=== PATIENT | female | born 1995 ===

== ENCOUNTER → 2016-05-11 | Outpatient (CLI) | payer OTHER ==
[2016-05-11 19:06] LABS: Non-African American GFR(MDRD) >60 (>60 ml/min/1.73 sqM)
[2016-05-11 19:13] LABS: CH 30.2; CHCM 34.1; HDW 2.47; HGB 14.3 gm/dL (11.4-16.0); MCH 30.2 pg (25.0-35.0); MCHC 34.1 g/dL (31.0-37.0); MCV 88.8 fL (80.0-100.0); Mean Platelet Volume 9.7; RBC 4.73 m/uL (3.80-5.40); RDW 12.7 % (11.5-15.5); WBC 9.8 k/uL (4.0-11.0)
[2016-05-11 19:37] LABS: Hepatitis B Surface Ag Index 0.05
== END | disposition home or self-care (01) ==
LOC: LABMAIN 17:51
PROVIDERS: ATTEND Obstetrics & Gynecology
DX: Z34.91 Encounter for supervision of normal pregnancy, unspecified, first trimester (principal); Z3A.00 Weeks of gestation of pregnancy not specified
CPT/HCPCS: 36415; 82565; 82950; 85027; 86762; 86780; 86850; 86900; 86901; 87340

== ENCOUNTER → 2016-06-29 | Outpatient (CLI) | payer OTHER ==
--- NOTE | 2016-06-29 20:30 | US ---
EXAMINATION TYPE: US OB anatomy transabd DATE OF EXAM: 06/29/2016 3:50 PM COMPARISON: 04/06/2016 HISTORY: LGA TECHNIQUE: Transabdominal (TA) EXAM MEASUREMENTS: GESTATIONAL AGE / DATING Physician Established: (18 weeks/5 days) EDC: 11/25/2016 Dates by LMP: uncertain Dates by First Scan: (18 weeks/5 days) EDC: 11/25/2016 Dates by Current Scan for: (19 weeks/0 days) EDC: 11/23/2016 SURVEY IUP: Single PLACENTA: Fundal PREVIA: No previa KAYLAH: 13.4 cm Normal CERVICAL LENGTH (transabdominal: norm > 3.0cm): 3.5 cm BIOMETRY PRESENTATION: Breech LIE: Transverse lie with head maternal Left BPD: 4.6 cm 20 weeks / 0 days HC: 16.3 cm 19 weeks / 1 day AC: 14.2 cm 19 weeks / 4 days FL: 2.8 cm 18 weeks / 3 days ESTIMATED WEIGHT IN GRAMS: 272.1 grams ESTIMATED WEIGHT IN LBS/OZ: 0 lbs. 10 oz. WEIGHT PERCENTAGE BASED ON ESTABLISHED DATE: 67.1 % HC/AC: 1.15 FL/AC: 19.48 HEART RATE: 129 bpm RHYTHM: Normal ANATOMY SEEN (within normal limits): * Lateral Vent (< 1 cm) 0.7 cm * Cisterna Magna (< 1.1 cm) 0.3 cm * Nuchal Fold (< 0.6 cm) 0.4 cm * Cerebellum (varies with age) 1.9 cm Choroid Plexus (bilateral) Midline Falx Cavus Septi Pellucidi Four Chamber Heart Outflow tracts: LVOT/RVOT Stomach Situs Diaphragm Kidneys (bilateral) Bladder Cord Insert Three Vessel Cord Longitudinal Spine Transverse Spine Arms (bilateral) Legs (bilateral) Anatomy not well seen: Nose / Lips as is < 20 weeks gestation IMPRESSION: Single, live, IUP, 19 weeks/0 days, EDC: 11/23/2016; HR 129bpm.
== END | disposition home or self-care (01) ==
LOC: RADUSWWP 14:32
PROVIDERS: ATTEND Obstetrics & Gynecology
DX: O36.62X0 Maternal care for excessive fetal growth, second trimester, not applicable or unspecified (principal); Z3A.19 19 weeks gestation of pregnancy; Z88.6 Allergy status to analgesic agent; Z91.030 Bee allergy status
CPT/HCPCS: 76811

== ENCOUNTER → 2016-08-10 | Outpatient (CLI) | payer OTHER ==
[2016-08-10 12:21] LABS: CH 30.8; HCT 38.3 % (34.0-46.0); HDW 2.64; HGB 12.5 gm/dL (11.4-16.0); MCH 30.7 pg (25.0-35.0); MCHC 32.8 g/dL (31.0-37.0); MCV 93.8 fL (80.0-100.0); Mean Platelet Volume 8.9; RBC 4.08 m/uL (3.80-5.40); RDW 13.9 % (11.5-15.5); WBC 10.2 k/uL (4.0-11.0)
== END | disposition home or self-care (01) ==
LOC: LABWHC1 10:45
PROVIDERS: ATTEND Obstetrics & Gynecology
DX: Z34.82 Encounter for supervision of other normal pregnancy, second trimester (principal); Z3A.00 Weeks of gestation of pregnancy not specified
CPT/HCPCS: 36415; 82950; 85027

== ENCOUNTER 2016-08-21 21:57 | Outpatient (CLI) | payer OTHER ==
[2016-08-21 22:45] VITALS: BP 144/90; PULSE 82; RESP 18; TEMP 97.5
== END 2016-08-21 22:35 | disposition home or self-care (01) ==
LOC: FBPOP 21:57
PROVIDERS: ATTEND Obstetrics & Gynecology
DX: O26.92 Pregnancy related conditions, unspecified, second trimester (principal); Z3A.26 26 weeks gestation of pregnancy
CPT/HCPCS: 99213

== ENCOUNTER 2016-09-08 16:01 | Outpatient (CLI) | payer OTHER ==
[2016-09-08 17:16] VITALS: BP 138/79; PULSE 89; RESP 16; TEMP 95.9
== END 2016-09-08 16:45 | disposition home or self-care (01) ==
LOC: FBPOP 16:01
PROVIDERS: ATTEND Obstetrics & Gynecology
DX: O99.89 Other specified diseases and conditions complicating pregnancy, childbirth and the puerperium (principal); R10.9 Unspecified abdominal pain; Z3A.28 28 weeks gestation of pregnancy
CPT/HCPCS: 59025; G0463; 99213

== ENCOUNTER 2016-09-17 22:12 | Outpatient (CLI) | payer OTHER ==
[2016-09-17 22:48] VITALS: BP 129/62; PULSE 84; RESP 16; TEMP 95.9
[2016-09-17 23:48] LABS: Appearance,Urine Clear (Clear); Bilirubin,Urine Negative (Negative); Glucose,Urine (UA) Negative (Negative); Ketones,Urine Trace (Negative); Leukocyte Esterase,Urine Negative (Negative); Nitrite,Urine Negative (Negative); PH, Urine 6.5 (5.0-8.0); Protein,Urine Negative (Negative); UA Billing (MACRO vs. MICRO) CHEM; Urobilinogen,Urine <2.0 mg/dL (<2.0)
--- NOTE | 2016-09-19 10:02 | P.MSEPDOC ---
Presenting Problems - Arrival Data Date of Arrival on Unit: 09/17/16 Time of Arrival on Unit: 22:12 Mode of Transport: Ambulatory - Complaint OB-Reason for Admission/Chief Complaint: Headache, Visual Disturbances, Pain Medical History - Information : 2 Para: 0 Term: 0 : 0 Abortions: Spontaneous or Elective: 1 Number of Living Children: 0 - Gestational Age Expected Date of Delivery: 11/25/16 Gestational Age by PRANAV (wks/days): 30 Weeks and 3 Days Review of Systems - Review of Systems Constitutional: No problems Breast: No problems ENT: No problems Cardiovascular: No problems Respiratory: No problems Gastrointestinal: No problems Genitourinary: No problems Musculoskeletal: No problems Neurological: No problems Skin: No problems Vital Signs - Temperature Temperature: 95.9 F Temperature Source: Tympanic - Pulse Right Brachial Pulse Rate: 84 Pulse Assessment Method: Automatic Cuff - Respirations Respiratory Rate: 16 Oxygen Delivery Method: Room Air - Blood Pressure Right Arm Blood Pressure: 129/62 Blood Pressure Mean: 84 Blood Pressure Source: Automatic Cuff Medical Screen Scoring (Pre) - Cervical Exam Dilation: 0 cm = 0 Effacement: Exam Deferred Membranes: Intact - Uterine Contractions Frequency: < 36 weeks = 6 - Maternal Vital Signs Maternal Temperature: N/A Maternal Blood Pressure: N/A Signs of Preeclampsia: N/A Maternal Respirations: N/A - Maternal Trauma Maternal Trauma: N/A - Assessment Heart Rate - NICHD Category: Category I (Normal) = 0 - Total Score Total Score (Pre): 6 - Level of Risk Level of Risk: Medium (6-9) Physician Notification (Pre) - Physician Notified Physician Notified Date: 09/17/16 Physician Notified Time: 22:23 Physician/Practitioner Notifed:: Dr. Howard Spoke With: Dr. Howard New Order Received: Yes Medical Screen Scoring (Post) - Cervical Exam Dilation: Exam Deferred Effacement: Exam Deferred Membranes: Intact - Uterine Contractions Frequency: > 5 minutes apart = 1 Duration: > 40 seconds = 2 Intensity: N/A - Maternal Vital Signs Maternal Temperature: N/A Maternal Blood Pressure: N/A Signs of Preeclampsia: N/A Maternal Respirations: N/A - Maternal Trauma Maternal Trauma: N/A - Assessment Heart Rate: 125 Heart Rate - NICHD Category: Category I (Normal) = 0 NST: Reactive Position: N/A Station: N/A - Total Score Total Score (Post): 3 - Post Treatment Level of Risk Post Treatment Level of Risk: Low (0-5) Physician Notification (Post) - Physician Notified Physician Notified Date: 09/18/16 Physician Notified Time: 00:07 Physician/Practitioner Notified:: Dr. Howard - Notification Comment Comment: Discharge patient home with instructions Disposition - Disposition Discharge Date: 09/18/16 Discharge Time: 00:15 I agree with the RN Medical Screening Exam: Yes Risk & Benefit of care provided described in d/c instruction: Yes Diagnosis: 30 WEEKS GESTATION OF
== END 2016-09-18 00:15 | disposition home or self-care (01) ==
LOC: FBPOP 22:12
PROVIDERS: ATTEND Obstetrics & Gynecology
DX: O99.89 Other specified diseases and conditions complicating pregnancy, childbirth and the puerperium (principal); R51 Headache; Z3A.30 30 weeks gestation of pregnancy
CPT/HCPCS: 59025; 82731; 81003; G0463; 99213

== ENCOUNTER 2016-10-02 21:24 | Outpatient (CLI) | payer OTHER ==
[2016-10-02 22:28] LABS: Amorphous Sediment,Urine Rare /hpf; Appearance,Urine Cloudy (Clear); Bacteria,Urine Occasional /hpf; Bilirubin,Urine Negative (Negative); Glucose,Urine (UA) Negative (Negative); Ketones,Urine Negative (Negative); Leukocyte Esterase,Urine Large (Negative); Mucus,Urine Rare /hpf; Nitrite,Urine Negative (Negative); Particle Count 10920; Protein,Urine Trace (Negative); RBC,Urine 3 /hpf (0-5); Specific Gravity,Urine 1.014 (1.001-1.035); Squamous Epithelial Cell,Urine 50 /hpf (0-4); UA Billing (MACRO vs. MICRO) MICRO; Urobilinogen,Urine <2.0 mg/dL (<2.0); WBC,Urine 26 /hpf (0-5)
[2016-10-02] MEDS ORDERED: LACTATED RINGERS 1,000 ML IV SCH (23:00)
[2016-10-02 23:20] VITALS: BP 117/58; PULSE 78; RESP 16; TEMP 96.9
--- NOTE | 2016-10-03 16:08 | P.MSEPDOC ---
Presenting Problems - Arrival Data Date of Arrival on Unit: 10/02/16 Time of Arrival on Unit: 21:38 Mode of Transport: Wheelchair - Complaint OB-Reason for Admission/Chief Complaint: Pain Medical History - Information : 2 Para: 0 Term: 0 : 0 Abortions: Spontaneous or Elective: 1 Number of Living Children: 0 - Gestational Age Expected Date of Delivery: 11/25/16 Gestational Age by PRANAV (wks/days): 32 Weeks and 3 Days Review of Systems - Review of Systems Constitutional: No problems Breast: No problems ENT: No problems Cardiovascular: No problems Respiratory: No problems Gastrointestinal: No problems Genitourinary: No problems Musculoskeletal: No problems Neurological: No problems Skin: No problems Vital Signs - Temperature Temperature: 96.9 F Temperature Source: Temporal Artery Scan - Pulse Right Brachial Pulse Rate: 78 Pulse Assessment Method: Automatic Cuff - Respirations Respiratory Rate: 16 Oxygen Delivery Method: Room Air - Blood Pressure Right Arm Blood Pressure: 117/58 Blood Pressure Mean: 77 Blood Pressure Source: Automatic Cuff Medical Screen Scoring (Pre) - Cervical Exam Dilation: 0 cm = 0 Membranes: Intact - Uterine Contractions Frequency: < 36 weeks = 6 Duration: > 40 seconds = 2 Intensity: N/A - Assessment Baseline FHR: 125 Heart Rate - NICHD Category: Category I (Normal) = 0 NST: Reactive - Total Score Total Score (Pre): 8 - Level of Risk Level of Risk: Medium (6-9) Medical Screen Scoring (Post) - Cervical Exam Dilation: Exam Deferred - Uterine Contractions Frequency: N/A - Total Score Total Score (Post): 0 - Post Treatment Level of Risk Post Treatment Level of Risk: Low (0-5) Physician Notification (Post) - Physician Notified Physician Notified Date: 10/02/16 Physician Notified Time: 23:28 Spoke With: Hector - Notification Comment Comment: if contractions stop and ffn negative may discharge Disposition - Disposition OB Disposition: Triage, Discharge to home, Written follow up instructions reviewed Discharge Date: 10/02/16 Discharge Time: 23:35 I agree with the RN Medical Screening Exam: Yes Risk & Benefit of care provided described in d/c instruction: Yes Diagnosis: FALSE LABOR BEFORE 37 COMPLETED WEEKS OF GEST, THIRD TRI
== END 2016-10-02 23:35 | disposition home or self-care (01) ==
LOC: FBPOP 21:24
PROVIDERS: ATTEND Obstetrics & Gynecology
DX: O47.03 False labor before 37 completed weeks of gestation, third trimester (principal); Z3A.37 37 weeks gestation of pregnancy
CPT/HCPCS: 59025; 96360; 82731; 81001; G0463; 99214

== ENCOUNTER 2016-10-26 19:51 | Outpatient (CLI) | payer OTHER ==
[2016-10-26 20:17] VITALS: BP 134/76; PULSE 72; RESP 16; TEMP 96.5
--- NOTE | 2016-10-27 12:26 | P.MSEPDOC ---
Presenting Problems - Arrival Data Date of Arrival on Unit: 10/26/16 Time of Arrival on Unit: 19:50 Mode of Transport: Wheelchair - Complaint OB-Reason for Admission/Chief Complaint: Observation/Evaluation Comment: complaints of back pain for 2 hours and cramping for 1 hour Medical History - Information : 2 Para: 0 Term: 0 : 0 Abortions: Spontaneous or Elective: 1 Number of Living Children: 0 - Gestational Age Expected Date of Delivery: 11/25/16 Gestational Age by PRANAV (wks/days): 35 Weeks and 6 Days Review of Systems - Review of Systems Constitutional: No problems Breast: No problems ENT: No problems Cardiovascular: No problems Respiratory: No problems Gastrointestinal: No problems Genitourinary: No problems Musculoskeletal: No problems Neurological: No problems Skin: No problems Vital Signs - Temperature Temperature: 96.5 F Temperature Source: Temporal Artery Scan - Pulse Right Sitting Brachial Pulse Rate: 72 Pulse Assessment Method: Automatic Cuff - Respirations Respiratory Rate: 16 O2 Sat by Pulse Oximetry: 99 - Blood Pressure Right Arm Blood Pressure: 134/76 Blood Pressure Mean: 95 Blood Pressure Source: Automatic Cuff Medical Screen Scoring (Pre) - Cervical Exam Dilation: 1-3 cm = 1 Membranes: Intact - Uterine Contractions Frequency: N/A Duration: N/A Intensity: N/A - Maternal Vital Signs Maternal Temperature: N/A Maternal Blood Pressure: N/A Signs of Preeclampsia: N/A Maternal Respirations: N/A - Maternal Trauma Maternal Trauma: N/A - Assessment Baseline FHR: 135 Heart Rate - NICHD Category: Category I (Normal) = 0 NST: Reactive - Total Score Total Score (Pre): 1 - Level of Risk Level of Risk: Low (0-5) Physician Notification (Pre) - Physician Notified Physician Notified Date: 10/26/16 Physician Notified Time: 21:08 Physician/Practitioner Notifed:: Yair Mackey Order Received: Yes Disposition - Disposition Discharge Date: 10/26/16 Discharge Time: 21:10 I agree with the RN Medical Screening Exam: Yes Risk & Benefit of care provided described in d/c instruction: Yes Diagnosis: FALSE LABOR, UNSPECIFIED
== END 2016-10-26 21:10 | disposition home or self-care (01) ==
LOC: FBPOP 19:51
PROVIDERS: ATTEND Obstetrics & Gynecology
DX: O47.9 False labor, unspecified (principal); Z3A.35 35 weeks gestation of pregnancy
CPT/HCPCS: 59025; G0463; 99213

== ENCOUNTER → 2016-11-02 | Outpatient (CLI) | payer OTHER ==
[2016-11-02 19:21] VITALS: BP 130/62; PULSE 81; RESP 18; TEMP 98
--- NOTE | 2016-11-04 19:22 | P.MSEPDOC ---
Presenting Problems - Arrival Data Date of Arrival on Unit: 11/02/16 Time of Arrival on Unit: 18:27 Mode of Transport: Wheelchair - Complaint OB-Reason for Admission/Chief Complaint: Possible Onset of Labor Comment: tailbone pain, rib pain, low abd discomfort. pain score of 5 Medical History - Information : 2 Para: 0 Term: 0 : 0 Abortions: Spontaneous or Elective: 1 Number of Living Children: 0 - Gestational Age Expected Date of Delivery: 11/25/16 Gestational Age by PRANAV (wks/days): 37 Weeks and 0 Days Review of Systems - Review of Systems Constitutional: No problems Breast: No problems ENT: No problems Cardiovascular: No problems Respiratory: No problems Gastrointestinal: No problems Genitourinary: No problems Musculoskeletal: No problems Neurological: No problems Skin: No problems Comment: depression history. not takin meds with . sees her counselor on tuesday this week and has ob appt on Vital Signs - Temperature Temperature: 98.0 F Temperature Source: Oral - Pulse Right Brachial Pulse Rate: 81 Pulse Assessment Method: Automatic Cuff - Respirations Respiratory Rate: 18 Oxygen Delivery Method: Room Air O2 Sat by Pulse Oximetry: 98 - Blood Pressure Right Arm Blood Pressure: 130/62 Blood Pressure Mean: 84 Blood Pressure Source: Automatic Cuff Medical Screen Scoring (Pre) - Cervical Exam Dilation: 1-3 cm = 1 Effacement: Exam Deferred Membranes: Intact - Uterine Contractions Frequency: N/A Duration: N/A Intensity: N/A - Maternal Vital Signs Maternal Temperature: N/A Signs of Preeclampsia: N/A Maternal Respirations: N/A - Maternal Trauma Maternal Trauma: N/A - Assessment Baseline FHR: 135 Heart Rate - NICHD Category: Category I (Normal) = 0 NST: Reactive Position: N/A Station: N/A - Total Score Total Score (Pre): 1 - Level of Risk Level of Risk: Low (0-5) Physician Notification (Pre) - Physician Notified Physician/Practitioner Notifed:: yes Spoke With: khai Mackey Order Received: Yes - Notification Comment Comment: disch home to keep next sched appt. Medical Screen Scoring (Post) - Cervical Exam Dilation: 1-3 cm = 1 Effacement: Exam Deferred Membranes: Intact - Uterine Contractions Frequency: N/A Duration: N/A Intensity: N/A - Maternal Vital Signs Maternal Temperature: N/A Maternal Blood Pressure: N/A Signs of Preeclampsia: N/A Maternal Respirations: N/A - Maternal Trauma Maternal Trauma: N/A - Assessment Heart Rate: 135 Heart Rate - NICHD Category: Category I (Normal) = 0 NST: Reactive Position: N/A Station: N/A - Total Score Total Score (Post): 1 - Post Treatment Level of Risk Post Treatment Level of Risk: Low (0-5) Physician Notification (Post) - Physician Notified Physician Notified Date: 11/02/16 Physician Notified Time: 19:07 Physician/Practitioner Notified:: khai Spoke With: khai New Order Received: Yes - Notification Comment Comment: discharge home Disposition - Disposition OB Disposition: Discharge to home Discharge Date: 11/02/16 Discharge Time: 19:15 I agree with the RN Medical Screening Exam: Yes Risk & Benefit of care provided described in d/c instruction: Yes Diagnosis: FALSE LABOR BEFORE 37 COMPLETED WEEKS OF GEST, THIRD TRI
== END ==
LOC: FBPOP 18:27
PROVIDERS: ATTEND Obstetrics & Gynecology
DX: O47.1 False labor at or after 37 completed weeks of gestation (principal); Z3A.37 37 weeks gestation of pregnancy
CPT/HCPCS: 59025; G0463; 99213

== ENCOUNTER 2016-11-11 18:29 | Outpatient (CLI) | payer OTHER ==
[2016-11-11 18:59] VITALS: BP 143/79; PULSE 81; RESP 16; TEMP 97.2
--- NOTE | 2016-11-13 10:05 | P.MSEPDOC ---
Presenting Problems - Arrival Data Date of Arrival on Unit: 11/11/16 Time of Arrival on Unit: 18:30 Mode of Transport: EMS - Complaint OB-Reason for Admission/Chief Complaint: Possible Onset of Labor, Rule Out SROM Comment: contractions " all day", ? SROM. Medical History - Information : 2 Para: 0 Term: 0 : 0 Abortions: Spontaneous or Elective: 1 Number of Living Children: 0 - Gestational Age Expected Date of Delivery: 11/25/16 Gestational Age by PRANAV (wks/days): 38 Weeks and 2 Days Review of Systems - Review of Systems Constitutional: No problems Breast: No problems ENT: No problems Cardiovascular: No problems Respiratory: No problems Gastrointestinal: No problems Genitourinary: No problems Musculoskeletal: No problems Neurological: No problems Skin: No problems Vital Signs - Temperature Temperature: 97.2 F Temperature Source: Temporal Artery Scan - Pulse Right Sitting Brachial Pulse Rate: 81 Pulse Assessment Method: Automatic Cuff - Respirations Respiratory Rate: 16 Oxygen Delivery Method: Room Air O2 Sat by Pulse Oximetry: 98 - Blood Pressure Right Arm Sitting Blood Pressure: 143/79 Blood Pressure Mean: 100 Blood Pressure Source: Automatic Cuff Medical Screen Scoring (Pre) - Cervical Exam Dilation: 1-3 cm = 1 Effacement: More than 50% = 2 Membranes: Intact - Uterine Contractions Frequency: > 5 minutes apart = 1 Duration: > 40 seconds = 2 Intensity: N/A - Maternal Vital Signs Maternal Temperature: N/A Maternal Blood Pressure: N/A Signs of Preeclampsia: N/A Maternal Respirations: N/A - Maternal Trauma Maternal Trauma: N/A - Assessment Baseline FHR: 120 Heart Rate - NICHD Category: Category I (Normal) = 0 NST: Reactive Position: N/A Station: N/A - Total Score Total Score (Pre): 6 - Level of Risk Level of Risk: Medium (6-9) Physician Notification (Post) - Physician Notified Physician Notified Date: 11/11/16 Physician Notified Time: 19:05 Physician/Practitioner Notified:: Rosita Mackey Order Received: Yes - Notification Comment Comment: discharge orders recieved Disposition - Disposition OB Disposition: Discharge to home Discharge Date: 11/11/16 Discharge Time: 19:10 I agree with the RN Medical Screening Exam: Yes Risk & Benefit of care provided described in d/c instruction: Yes Diagnosis: FALSE LABOR AT OR AFTER 37 COMPLETED WEEKS OF GESTATION
== END 2016-11-11 19:10 | disposition home or self-care (01) ==
LOC: FBPOP 18:29
PROVIDERS: ATTEND Obstetrics & Gynecology
DX: O47.1 False labor at or after 37 completed weeks of gestation (principal); Z3A.38 38 weeks gestation of pregnancy
CPT/HCPCS: 59025; G0463; 99213

== ENCOUNTER 2016-11-25 20:00 | Outpatient (CLI) | payer OTHER ==
[2016-11-25 20:39] VITALS: BP 141/81; PULSE 78; RESP 18; TEMP 97.3
--- NOTE | 2016-12-01 16:32 | P.MSEPDOC ---
Presenting Problems - Arrival Data Date of Arrival on Unit: 11/25/16 Time of Arrival on Unit: 20:00 Mode of Transport: EMS - Complaint OB-Reason for Admission/Chief Complaint: Possible Onset of Labor Comment: 1900 ctx 5 min apart Medical History - Information : 2 Para: 0 Term: 0 : 0 Abortions: Spontaneous or Elective: 1 Number of Living Children: 0 - Gestational Age Expected Date of Delivery: 11/25/16 Gestational Age by PRANAV (wks/days): 40 Weeks and 6 Days Review of Systems - Review of Systems Constitutional: No problems Breast: No problems ENT: No problems Cardiovascular: No problems Respiratory: No problems Gastrointestinal: No problems Genitourinary: No problems Musculoskeletal: No problems Neurological: No problems Skin: No problems Vital Signs - Temperature Temperature: 97.3 F Temperature Source: Temporal Artery Scan - Pulse Right Brachial Pulse Rate: 78 Pulse Assessment Method: Automatic Cuff - Respirations Respiratory Rate: 18 Oxygen Delivery Method: Room Air - Blood Pressure Right Arm Blood Pressure: 141/81 Blood Pressure Mean: 101 Blood Pressure Source: Automatic Cuff Medical Screen Scoring (Pre) - Cervical Exam Dilation: 1-3 cm = 1 Membranes: Intact - Uterine Contractions Frequency: > or = 36 weeks =2 Duration: > 40 seconds = 2 Intensity: N/A - Maternal Vital Signs Maternal Temperature: N/A Maternal Blood Pressure: Systolic >139 = 2 Signs of Preeclampsia: N/A Maternal Respirations: N/A - Maternal Trauma Maternal Trauma: N/A - Assessment Baseline FHR: 120 Heart Rate - NICHD Category: Category I (Normal) = 0 NST: Reactive Position: N/A Station: N/A - Total Score Total Score (Pre): 7 - Level of Risk Level of Risk: Medium (6-9) Medical Screen Scoring (Post) - Cervical Exam Dilation: 1-3 cm = 1 Membranes: Intact - Uterine Contractions Frequency: > or = 36 weeks =2 Duration: > 40 seconds = 2 Intensity: N/A - Total Score Total Score (Post): 5 - Post Treatment Level of Risk Post Treatment Level of Risk: Low (0-5) Physician Notification (Post) - Physician Notified Physician Notified Date: 11/25/16 Physician Notified Time: 21:14 Physician/Practitioner Notified:: Dr. Young New Order Received: Yes (discharge if no cervical change) Disposition - Disposition OB Disposition: Discharge to home, Written follow up instructions reviewed Discharge Date: 11/25/16 Discharge Time: 21:48 I agree with the RN Medical Screening Exam: Yes Risk & Benefit of care provided described in d/c instruction: Yes Diagnosis: FALSE LABOR AT OR AFTER 37 COMPLETED WEEKS OF GESTATION
== END 2016-11-25 21:48 | disposition home or self-care (01) ==
LOC: FBPOP 20:00
PROVIDERS: ATTEND Obstetrics & Gynecology
DX: O47.1 False labor at or after 37 completed weeks of gestation (principal); Z3A.40 40 weeks gestation of pregnancy
CPT/HCPCS: 59025; 96360; 96361; G0463; 99214

== ENCOUNTER 2016-11-28 16:43 | Outpatient (CLI) | payer OTHER ==
[2016-11-28 17:11] VITALS: BP 143/74; PULSE 55; RESP 16; TEMP 97.8
--- NOTE | 2016-11-28 19:50 | P.MSEPDOC ---
Presenting Problems - Arrival Data Date of Arrival on Unit: 11/28/16 Time of Arrival on Unit: 16:44 Mode of Transport: EMS - Complaint OB-Reason for Admission/Chief Complaint: Other Comment: pt arrived via ems c/o contractions q 2 minutes apart for 1 hour pt denies any bleeding or leaking of fluid Medical History - Information : 2 Para: 0 Term: 0 : 0 Abortions: Spontaneous or Elective: 1 Number of Living Children: 0 - Gestational Age Expected Date of Delivery: 11/25/16 Gestational Age by PRANAV (wks/days): 40 Weeks and 3 Days Review of Systems - Review of Systems Constitutional: No problems Breast: No problems ENT: No problems Cardiovascular: No problems Respiratory: No problems Gastrointestinal: No problems Genitourinary: No problems Musculoskeletal: No problems Neurological: No problems Skin: No problems Comment: hsx of depression and had been diagnos with it and has a couseleor that she sees and follows not on any meds at this time Vital Signs - Temperature Temperature: 97.8 F Temperature Source: Oral - Pulse Right Brachial Pulse Rate: 55 Pulse Assessment Method: Automatic Cuff - Respirations Respiratory Rate: 16 Oxygen Delivery Method: Room Air - Blood Pressure Right Arm Blood Pressure: 143/74 Blood Pressure Mean: 97 Blood Pressure Source: Automatic Cuff Medical Screen Scoring (Pre) - Cervical Exam Dilation: 1-3 cm = 1 Effacement: More than 50% = 2 Membranes: Intact - Total Score Total Score (Pre): 3 Medical Screen Scoring (Post) - Cervical Exam Dilation: 1-3 cm = 1 Effacement: More than 50% = 2 Membranes: Intact - Uterine Contractions Frequency: > 5 minutes apart = 1 Duration: N/A Intensity: N/A - Maternal Vital Signs Maternal Temperature: N/A Maternal Blood Pressure: N/A Signs of Preeclampsia: N/A Maternal Respirations: N/A - Maternal Trauma Maternal Trauma: N/A - Assessment Heart Rate: 120 Heart Rate - NICHD Category: Category I (Normal) = 0 NST: Reactive Station: N/A - Total Score Total Score (Post): 4 - Post Treatment Level of Risk Post Treatment Level of Risk: Low (0-5) Physician Notification (Post) - Physician Notified Physician Notified Date: 11/28/16 Physician Notified Time: 18:30 Physician/Practitioner Notified:: dr osorio Spoke With: dr osorio New Order Received: Yes - Notification Comment Comment: may discharge to home Disposition - Disposition OB Disposition: Discharge to home Discharge Date: 11/28/16 Discharge Time: 19:00 I agree with the RN Medical Screening Exam: Yes Risk & Benefit of care provided described in d/c instruction: Yes Diagnosis: FALSE LABOR, UNSPECIFIED
== END 2016-11-28 19:00 | disposition home or self-care (01) ==
LOC: FBPOP 16:43
PROVIDERS: ATTEND Obstetrics & Gynecology
DX: O47.9 False labor, unspecified (principal); Z3A.40 40 weeks gestation of pregnancy
CPT/HCPCS: 59025; G0463; 99213

== ENCOUNTER 2016-12-01 07:05 | Inpatient (IN) | payer OTHER ==
[2016-12-01 07:40] VITALS: BMI 25.9
[2016-12-01] MEDS ORDERED: CARBOPROST TROMETHAMINE 250 MCG/ML 1 ML AMP IM PRN (08:33)
[2016-12-01] MEDS ORDERED: LIDOCAINE 1% (PF) 10 MG/ML (30 ML SDV) SQ PRN (08:33)
[2016-12-01] MEDS ORDERED: METHYLERGONOVINE 0.2 MG/ML 1 ML AMP IM PRN (08:33)
[2016-12-01] MEDS ORDERED: TERBUTALINE 1 MG/ML VIAL SQ PRN (08:33)
[2016-12-01] MEDS ORDERED: OXYTOCIN 10 UNIT/ML 1 ML VIAL IM PRN (08:33)
[2016-12-01] MEDS ORDERED: LACTATED RINGERS 1,000 ML IV SCH (08:45)
--- NOTE | 2016-12-01 08:54 | P.HPOB ---
History of Present Illness H&P Date: 12/01/16 Chief Complaint: Contractions This is a 21-year-old female 2 para 0 with an estimated date of confinement of 11/25/2016, estimated gestational age of 40-6/7 weeks, who presents to labor and delivery with complaints of contractions since approximately 1 AM. She denies any rupture of membranes. care has been with Dr. Howard and has been essentially uncomplicated per patient. labs: GC/Chlamydia-negative Syphilis antibody-negative Hepatitis B surface antigen-negative One hour Glucola-111 Hemoglobin-14.3 Rubella-immune Type-O+ Antibody screen-negative Obstetrical ultrasound-normal anatomy Group B streptococcus-negative Obstetrical history: and history of 1 spontaneous miscarriage Review of Systems Constitutional: Denies chills, Denies fever Eyes: denies blurred vision, denies pain Ears, nose, mouth and throat: Denies headache, Denies sore throat Cardiovascular: Denies chest pain, Denies shortness of breath Respiratory: Denies cough Gastrointestinal: Reports abdominal pain Genitourinary: Reports pelvic pain, Reports Musculoskeletal: Reports low back pain Integumentary: Denies pruritus, Denies rash Neurological: Denies numbness, Denies weakness Psychiatric: Denies anxiety, Denies depression Past Medical History Past Medical History: No Reported History History of Any Multi-Drug Resistant Organisms: None Reported Past Surgical History: No Surgical Hx Reported Past Anesthesia/Blood Transfusion Reactions: No Reported Reaction Past Psychological History: No Psychological Hx Reported Smoking Status: Never smoker Past Alcohol Use History: None Reported Past Drug Use History: None Reported - Past Family History Father History Unknown: Yes Family Medical History: No Reported History Medications and Allergies Home Medications Medication Instructions Recorded Confirmed Type Pnv,Calcium 72/Iron/Folic Acid 1 tab PO DAILY 08/21/16 12/01/16 History [ Plus Tablet] Cholecalciferol [Vitamin D3] 1,000 unit PO DAILY 09/08/16 12/01/16 History Allergies Allergy/AdvReac Type Severity Reaction Status Date / Time venom-honey bee Allergy Anaphylaxis Verified 11/28/16 16:57 [bee venom (honey bee)] Exam Osteopathic Statement: *. No significant issues noted on an osteopathic structural exam other than those noted in the History and Physical/Consult. - Vital Signs Vital signs: Vital Signs Temp Pulse Resp BP Pulse Ox 12/01/16 07:08 97.7 F 63 17 127/62 99 Intake and Output 11/30/16 12/01/16 12/01/16 22:59 06:59 14:59 Other: Weight 64.41 kg Patient Weight 12/02/16 06:59 Weight 64.41 kg Gen.: Well-developed well-nourished female with poor hygiene in mild acute distress. HEENT: Within normal limits Heart: Regular rate and rhythm Lungs: Clear to auscultation bilaterally Abdomen: Cervix: 5 cm/100%/-1 station. Artificial rupture of membranes is carried out with meconium fluid noted. heart tones: Reactive Contractions: Every 2-4 minutes Extremities: Negative Homans. The bottoms of her feet are black with dirt. Assessment and Plan (1) Post-term , 40-42 weeks of gestation Status: Acute (2) Thin meconium stained amniotic fluid Status: Acute Plan: Admission for active labor. Stadol as needed for pain control. May have epidural if desired. Will notify anesthesia regarding meconium fluid.
[2016-12-01] MEDS: BUTORPHANOL 1 MG/ML 1 ML VIAL IV PRN ×2 (09:02→11:03)
[2016-12-01 09:39] LABS: Basophils % (A) 0 %; CH 31.7; CHCM 35.1; Eosinophils % (A) 0 %; HCT 39.6 % (34.0-46.0); HDW 2.58; HGB 13.2 gm/dL (11.4-16.0); Large Platelets Flag Marked; Luc % (Auto) 2; Lymphocytes # (A) 1.3 k/uL (1.0-4.8); Lymphocytes % (A) 12 %; MCH 30.3 pg (25.0-35.0); MCHC 33.4 g/dL (31.0-37.0); MCV 90.6 fL (80.0-100.0); Monocytes # (A) 0.4 k/uL (0-1.0); Monocytes % (A) 3 %; Neutrophils # (A) 9.2 k/uL (1.3-7.7); Neutrophils % (A) 83 %; RBC 4.37 m/uL (3.80-5.40); RDW 14.5 % (11.5-15.5); WBC (Perox) 11.39
[2016-12-01 10:02] LABS: Large Platelets Present; Manual Review Performed; RBC Morphology Normal
[2016-12-01] MEDS ORDERED: OXYTOCIN 20 UNITS/1000 ML NS 1,000 ML IV SCH ×2 (10:15→14:33)
[2016-12-01] MEDS ORDERED: OXYTOCIN 10 UNIT/ML 1 ML VIAL ONE (13:28)
[2016-12-01] MEDS ORDERED: METHYLERGONOVINE 0.2 MG/ML 1 ML AMP ONE (13:28)
[2016-12-01] MEDS ORDERED: PROPOFOL 10 MG/ML 20 ML VIAL IV ONE (13:28)
[2016-12-01] MEDS ORDERED: MIDAZOLAM 2 MG/2 ML VIAL ONE (13:28)
[2016-12-01] MEDS ORDERED: KETOROLAC 30 MG/ML 1 ML VIAL ONE (13:28)
[2016-12-01] MEDS ORDERED: fentaNYL (PF) 50 MCG/ML 2 ML AMP ONE (13:28)
--- NOTE | 2016-12-01 14:06 | P.PROBDLV ---
Vaginal Delivery Note - . Vaginal Delivery Note: She progressed to complete dilation after visual rupture membranes with thin meconium noted. She did receive Stadol during labor. Once reaching complete, she began pushing. Infant's head came to a crown. With one further push the infant's head delivered across the perineum followed by the anterior shoulder. Nuchal cord times one was doubly clamped and cut and reduced around the ' s head and nose and mouth were bulb suctioned. With one further push, the immediately delivered and was placed on mother's abdomen with brisk cry noted immediately. [employer]INE[employer] was standing by due to meconium. A viable male is noted with scores of 8 at 1 minute and 9 at 5 minutes and infant weight of 7 lbs. 1 oz. Inspection of the perineum revealed a right periurethral laceration. This area was anesthetized with 1% lidocaine and then sutured with 3-0 Vicryl suture in a running locked fashion. After approximately 15 minutes, the placenta was still not relaxing even after uterine massage. The cord did come loose. A gloved hand was then placed into the intrauterine cavity with attempt at manual placental removal. Pieces of the placenta were removed with some membrane, however the remainder the placenta was still very adherent to the fundus of the uterus. I tried several times to remove as much tissue as possible, however the patient was very uncomfortable could not tolerate the manual removal. Estimated blood loss at this time was approximately 50 mL. Infant is in stable condition. Mother will be taken back to the operating room for anesthesia and an under anesthesia for manual placental removal with possible curetting. Risks and benefits of surgery were discussed with the mother and her boyfriend.
--- NOTE | 2016-12-01 14:12 | P.OP ---
Date of Procedure: 12/01/16 Preoperative Diagnosis: Retained placenta Postoperative Diagnosis: Retained placenta Heart-shaped uterus Procedure(s) Performed: Examination under anesthesia, manual placental removal, uterine curettage Implants: Anesthesia: other (IV sedation with nitrous oxide) Surgeon: Evelyne Young Estimated Blood Loss (ml): 200 Pathology: other (Placental tisse) Condition: stable Disposition: floor Indications for Procedure: This is a 21-year-old female 2 para 0 who delivered vaginally on 2016 and placenta is noted to be retained. Portion of the placenta was removed manually however there still was noted to be pieces of placenta palpated along with membrane. The patient did consent to a dilation and curettage under anesthesia. Operative Findings: Uterus is noted to be heart shaped with a larger left horn than the right. The majority of the retained placenta was in the left horn. The placenta was very adherent to the uterine cavity. A large amount of placental tissue and membranes were removed manually. Description of Procedure: A she was taken to the operating room where she was first given IV sedation and then nitrous oxide. He was placed in the dorsolithotomy position and prepped and draped in the normal sterile fashion. A weighted speculum was placed in the patient's vagina and the anterior lip of the cervix is grasped with a ring forcep. The cervical os is noted to be open. Next a gloved hand was placed through the cervix and pieces of placenta and membranes were manually removed piece by piece. It was noted to be very adherent to the uterine wall. There was also noted to be an irregular contour to the uterus with a bilobed fundus noted. The left horn was slightly larger than the right. A large sharp curette was used to curette the endometrium with minimal further tissue obtained. A gloved hand again was placed and once no further tissue could be obtained oxytocin was opened up and Methergine 0.2 mg was given IM. The lining was still noted to be slightly ratty, but no further tissue was able to be obtained. Uterus did clamp down fairly well after this and minimal bleeding was noted. There was noted to be an opening up of the right periurethral laceration, and this was then sutured with 3-0 Vicryl suture in a running locked fashion. Bladder was also read with a red rubber catheter. A large amount of clear urine was noted. Estimated blood loss is approximately 200 mL. Patient was also given 2 g of Kefzol IV piggyback.
[2016-12-01] MEDS ORDERED: SIMETHICONE 80 MG CHEWABLE PO PRN (14:33)
[2016-12-01] MEDS ORDERED: HYDROCORTISONE 2.5% RECTAL CREAM 30 GM TUBE RECTAL PRN (14:33)
[2016-12-01] MEDS ORDERED: WITCH HAZEL 1 EACH MED..PAD TOPICAL PRN (14:33)
[2016-12-01] MEDS ORDERED: diphenhydrAMINE 50 MG/ML 1 ML VIAL IVP PRN ×2 (14:33)
[2016-12-01] MEDS ORDERED: ZOLPIDEM 5 MG TAB PO PRN (14:33)
[2016-12-01] MEDS ORDERED: diphenhydrAMINE 25 MG CAP PO PRN (14:33)
[2016-12-01] MEDS ORDERED: BENZOCAINE/MENTHOL SPRAY 1 GM/SPRAY AEROSOL TOPICAL PRN (14:33)
[2016-12-01] MEDS ORDERED: ACETAMINOPHEN TAB 325 MG TAB PO PRN (14:33)
[2016-12-01] MEDS ORDERED: diphenhydrAMINE 50 MG CAP PO PRN (14:33)
[2016-12-01] MEDS ORDERED: LANOLIN CREAM 5 GM TUBE TOPICAL PRN (14:33)
[2016-12-01] MEDS ORDERED: Acetaminophen-Codeine 300-30mg TAB PO PRN ×2 (14:33)
[2016-12-01 15:05] LABS: Basophils % (A) 0 %; CH 30.5; CHCM 34.5; Eosinophils # (A) 0.1 k/uL (0-0.7); Eosinophils % (A) 0 %; HCT 35.8 % (34.0-46.0); HDW 2.64; HGB 12.4 gm/dL (11.4-16.0); Large Platelets Flag Marked; Luc # (Auto) 0.24; Luc % (Auto) 1; Lymphocytes # (A) 1.1 k/uL (1.0-4.8); Lymphocytes % (A) 5 %; MCH 30.8 pg (25.0-35.0); MCHC 34.7 g/dL (31.0-37.0); MCV 88.8 fL (80.0-100.0); Mean Platelet Volume 11.7; Monocytes # (A) 0.7 k/uL (0-1.0); Monocytes % (A) 3 %; Neutrophils # (A) 18.5 k/uL (1.3-7.7); Neutrophils % (A) 90 %; RBC 4.03 m/uL (3.80-5.40); RDW 13.6 % (11.5-15.5); WBC 20.6 k/uL (4.0-11.0); WBC (Perox) 21.65
[2016-12-01] MEDS: SENNOSIDES-DOCUSATE SODIUM 1 EACH TAB PO SCH (20:00)
[2016-12-01 20:51] VITALS: RESP 18
[2016-12-01] MEDS: ceFAZolin 1,000 MG in DEXTROSE/WATER 1 50ML.BAG IVPB SCH (21:00)
[2016-12-01] MEDS: IBUPROFEN 600 MG TAB PO PRN (22:34)
[2016-12-02 08:42] LABS: Basophils % (A) 0 %; CH 31.4; CHCM 34.4; Eosinophils # (A) 0.1 k/uL (0-0.7); Eosinophils % (A) 0 %; HCT 28.1 % (34.0-46.0); Large Platelets Flag Marked; Luc # (Auto) 0.16; Luc % (Auto) 1; Lymphocytes # (A) 1.7 k/uL (1.0-4.8); Lymphocytes % (A) 13 %; MCH 30.6 pg (25.0-35.0); MCHC 33.3 g/dL (31.0-37.0); MCV 91.8 fL (80.0-100.0); Mean Platelet Volume 12.2; Monocytes # (A) 0.5 k/uL (0-1.0); Monocytes % (A) 4 %; Neutrophils # (A) 10.5 k/uL (1.3-7.7); Neutrophils % (A) 82 %; RBC 3.06 m/uL (3.80-5.40); RDW 14.5 % (11.5-15.5); WBC 12.8 k/uL (4.0-11.0)
[2016-12-02 08:49] LABS: HGB 9.4 gm/dL (11.4-16.0)
--- NOTE | 2016-12-02 08:59 | P.DS ---
Providers Date of admission: 12/01/16 08:17 Expected date of discharge: 12/02/16 Attending physician: Niecy Howard - Discharge Diagnosis(es) (1) Post-term , 40-42 weeks of gestation Current Visit: Yes Status: Acute (2) Thin meconium stained amniotic fluid Current Visit: Yes Status: Acute Hospital Course: This is a 21-year-old female 2 para 0 at 40-6/7 weeks who presented in active labor. She did have meconium stained fluid upon rupture of membranes. She delivered vaginally a viable male on 12/01/2016 with scores of 8 at 1 minute and 9 at 5 minutes and infant weight of 7 lbs. 1 oz. She did have retained placenta and didn't have to undergo a dilation and curettage under anesthesia to remove the placental pieces. During the procedure was noted that she had an irregular shape uterus with a heart-shaped uterus and most of the placental pieces in the left horn. The placenta was noted to be very adherent and very ratty in nature. Postoperatively, she had very minimal bleeding. She denies any significant pain. She is using ibuprofen as needed for pain control. She is breast-feeding. Lochia is is decreasing. Vital signs are stable. Abdomen is soft with fundus firm and nontender. Extremities show negative Homans. Impression is status post vaginal delivery with manual placental removal and dilation and curettage was part and then postoperative day #1. Plan is to discharge home later this afternoon. Routine instructions are given. She is advised to follow up with Dr. Howard in 6 weeks in the office. She is advised to call the office if she has any further questions or concerns prior to her appointment times. She may need further workup of her uterine anomaly after 6 weeks . Procedures: Spontaneous vaginal delivery of a viable male infant on 12/01/2016 Examination under anesthesia with uterine curettage for retained placenta on Patient Condition at Discharge: Stable Plan - Discharge Summary New Discharge Prescriptions: New Ibuprofen [Motrin] 600 mg PO Q6HR PRN #60 tab PRN Reason: Mild Pain Or Fever >= 100.5 Continue Pnv,Calcium 72/Iron/Folic Acid [ Plus Tablet] 1 tab PO DAILY Cholecalciferol [Vitamin D3] 1,000 unit PO DAILY Discharge Medication List Pnv,Calcium 72/Iron/Folic Acid [ Plus Tablet] 1 tab PO DAILY 08/21/16 [ History] Cholecalciferol [Vitamin D3] 1,000 unit PO DAILY 09/08/16 [History] Ibuprofen [Motrin] 600 mg PO Q6HR PRN #60 tab 12/02/16 [Rx] Follow up Appointment(s)/Referral(s): Niecy Howard DO [Doctor of Osteopathic Medicine] - 6 Weeks Activity/Diet/Wound Care/Special Instructions: Instructions 1. Do not begin any exercise program for 3 weeks. 2. Do not resume sexual relations for 3 weeks or longer if uncomfortable. 3. You may take tub baths or showers at any time. 4. You may use tampons if desired after 3 weeks. 5. Keep the area of episiotomy (stitches) clean and dry. 6. If you are not nursing, wear a good fitting, supportive bra during the day and limit fluid intake for at least 1 week to prevent breast engorgement. 7. Call the office, [phone], within the next week to make appointment for your 6 week checkup if it has not already been made. 8. Report any of the following occurrences to the doctor promptly: a. Heavy, excessive bleeding b. Chills, fever c. Burning or frequency of urination d. Pain or redness and breasts if nursing e. Increasing pain or swelling in episiotomy (stitches). In addition to the above instructions, the following additional should be followed: 1. No heavy lifting or straining (exercising) until after 6 week checkup. 2. Keep abdominal incision clean and dry: You may wear a dressing if more comfortable. 3. Make office appointment for 10 days after going home or as instructed by her doctor. Discharge Disposition: HOME SELF-CARE
[2016-12-02 09:44] VITALS: BP 119/66; PULSE 102; TEMP 98
[2016-12-02] MEDS: ceFAZolin 1,000 MG in DEXTROSE/WATER 1 50ML.BAG IVPB SCH (12:59)
[2016-12-02] MEDS: IBUPROFEN 600 MG TAB PO PRN (13:42)
[2016-12-02] MEDS: SENNOSIDES-DOCUSATE SODIUM 1 EACH TAB PO SCH (16:56)
== END 2016-12-02 17:00 | disposition home or self-care (01) | DRG 767 ==
LOC: FBPOP 07:05 → 4FBP 08:17
PROVIDERS: ADMIT Obstetrics & Gynecology; ATTEND Obstetrics & Gynecology
PROC: 10D17ZZ Extraction of Products of Conception, Retained, Via Natural or Artificial Opening (ICD-10-PCS; 2016-12-01)
PROC: 0UQMXZZ Repair Vulva, External Approach (ICD-10-PCS; 2016-12-01)
PROC: 10E0XZZ Delivery of Products of Conception, External Approach (ICD-10-PCS; principal; 2016-12-01 13:20)
DX: O48.0 Post-term pregnancy (principal); O72.2 Delayed and secondary postpartum hemorrhage; O77.0 Labor and delivery complicated by meconium in amniotic fluid; O69.81X0 Labor and delivery complicated by cord around neck, without compression, not applicable or unspecified; O71.82 Other specified trauma to perineum and vulva; Z37.0 Single live birth; Z3A.40 40 weeks gestation of pregnancy
CPT/HCPCS: 59025; 85025; 88305; 88307; 99213

== ENCOUNTER → 2017-03-16 | Outpatient (CLI) | payer OTHER ==
--- NOTE | 2017-03-16 23:37 | MR ---
EXAMINATION TYPE: MR pelvis wo/w con DATE OF EXAM: 03/16/2017 COMPARISON: NONE HISTORY: Pelvic pain. Bicornuate uterus. CONTRAST: Standard multiplanar, multisequence MRI departmental protocol utilizing 7.5 mL intravenous gadolinium contrast. FINDINGS: Urinary bladder is almost empty. Uterus is anteverted. Endometrium appears normal. I do not see a bicornuate uterus. There are multiple dilated veins in the pelvis. There are numerous follicular cysts on the left ovary . I see no evidence of adnexal mass. There is a small amount of free fluid in the pelvis. There is a 2.5 cm thin-walled cyst on the right ovary. I see no pathologic enhancement. The remainder of the exa m is unremarkable.. IMPRESSION: There is normal appearing uterus. I do not see a bicornuate uterus. Dominant right ovarian cyst. Follicular cyst on the left ovary. Large veins in the floor of the pelvi s consistent with varicose veins. Mild free fluid.
== END | disposition home or self-care (01) ==
LOC: RADMRIMAIN 19:58
PROVIDERS: ATTEND Obstetrics & Gynecology
DX: N83.201 Unspecified ovarian cyst, right side (principal); N83.202 Unspecified ovarian cyst, left side
CPT/HCPCS: 72197; A9581

== ENCOUNTER 2017-05-02 05:09 | Emergency (ER) | payer OTHER ==
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
[2017-05-02 07:29] VITALS: RESP 16
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
[2017-05-02 10:08] VITALS: BP 129/90; PULSE 66; TEMP 98.9
== END 2017-05-02 10:08 | disposition home or self-care (01) ==
LOC: EC 05:09
DX: S00.11XA Contusion of right eyelid and periocular area, initial encounter (principal); F39 Unspecified mood [affective] disorder; Z91.030 Bee allergy status; Z79.3 Long term (current) use of hormonal contraceptives; Y04.2XXA Assault by strike against or bumped into by another person, initial encounter
CPT/HCPCS: 70486; 82075; 99284

== ENCOUNTER 2017-07-19 15:24 | Emergency (ER) | payer OTHER ==
[2017-07-19 15:35] VITALS: BP 135/77; PULSE 78; RESP 16; TEMP 97.9
--- NOTE | 2017-07-19 15:36 | ED ---
General Adult HPI - General Chief complaint: Abdominal Pain Stated complaint: Jaw Pain, Nauseated, Fever Time Seen by Provider: 07/19/17 15:35 Source: patient Mode of arrival: ambulatory Limitations: no limitations - History of Present Illness Initial comments: Patient presents after 2 episodes of vomiting this morning approximately 10 minutes apart. States symptoms currently resolved. Patient felt like she had a fever, however no fever upon arrival. Did not take any antipyretics. Denies abdominal pain. Denies changes in bowel movements. Denies urinary symptoms. Patient states she is currently on her period, denies . Denies travel , sick contacts, suspicious food intake. Patient states she has mild nausea at this time, no other symptoms. Patient states she was able to eat a chocolate muffin prior to arrival without vomiting. - Related Data Home Medications Medication Instructions Recorded Confirmed Norgestimate-Ethinyl Estradiol 1 tab PO DAILY 05/22/17 05/22/17 [Mononessa 28 Tablet] Previous Rx's Medication Instructions Recorded Ondansetron Odt [Zofran Odt] 4 mg PO Q8HR PRN #10 tab 05/22/17 Ondansetron Odt [Zofran Odt] 4 mg PO Q8HR PRN #10 tab 07/19/17 Allergies Allergy/AdvReac Type Severity Reaction Status Date / Time venom-honey bee Allergy Anaphylaxis Verified 07/19/17 15:35 [bee venom (honey bee)] Review of Systems ROS Statement: Those systems with pertinent positive or pertinent negative responses have been documented in the HPI. Constitutional: Reports: fever (Subjective). Denies: chills, weakness Eyes: Denies: vision change ENT: Denies: throat pain Respiratory: Denies: cough Cardiovascular: Denies: chest pain, palpitations Endocrine: Denies: fatigue, polyuria Gastrointestinal: Reports: nausea, vomiting. Denies: abdominal pain, diarrhea, constipation, hematemesis, melena, hematochezia Genitourinary: Denies: urgency, dysuria, frequency, discharge, abnormal menses Musculoskeletal: Denies: back pain, myalgia Skin: Denies: rash Neurological: Denies: headache, confusion Psychiatric: Denies: anxiety Past Medical History Past Medical History: No Reported History Additional Past Medical History / Comment(s): low Fe, History of Any Multi-Drug Resistant Organisms: None Reported Past Surgical History: No Surgical Hx Reported Additional Past Surgical History / Comment(s): D&C at delivery Past Anesthesia/Blood Transfusion Reactions: No Reported Reaction Past Psychological History: ADD/ADHD, Anxiety, Bipolar, Depression Smoking Status: Never smoker Past Alcohol Use History: Occasional Past Drug Use History: None Reported - Past Family History Father History Unknown: Yes Family Medical History: No Reported History General Exam - General Exam Comments Initial Comments: Sitting up in bed smiling, arms behind head, patient jumped onto the bed initially. Patient is very well-appearing. Conversing normally. Well-groomed well-dressed. Limitations: no limitations General appearance: alert, in no apparent distress Head exam: Present: atraumatic, normocephalic Eye exam: Present: normal appearance, PERRL, EOMI ENT exam: Present: normal exam, mucous membranes moist. Absent: mucous membranes dry Neck exam: Present: normal inspection. Absent: tenderness, meningismus Respiratory exam: Present: normal lung sounds bilaterally. Absent: respiratory distress, wheezes, rales Cardiovascular Exam: Present: regular rate, normal rhythm GI/Abdominal exam: Present: soft, normal bowel sounds. Absent: distended, tenderness, guarding, rebound, rigid Extremities exam: Present: normal inspection Neurological exam: Present: alert, oriented X3 Psychiatric exam: Present: normal affect, normal mood Skin exam: Present: warm, dry, intact, normal color. Absent: rash Course Vital Signs 07/19/17 15:33 Temperature 97.9 F Pulse Rate 78 Respiratory 16 Rate Blood Pressure 135/77 O2 Sat by Pulse 98 Oximetry Medical Decision Making - Medical Decision Making Discussed drawing labs, giving IV fluids, IV Zofran, influenza swab. Patient declined stating she feels better patient states "I called off work today I just need a note". Patient agrees to oral Zofran. We'll give prescription Zofran. Oral hydration discussed. Patient states she will return to ER if symptoms do not resolve at home. Patient instructed to follow primary care physician one to 2 days. Disposition Clinical Impression: Vomiting Disposition: HOME SELF-CARE Condition: Good Instructions: Acute Nausea and Vomiting (ED) Additional Instructions: Return to ER if new or worsening symptoms, or he wish to pursue blood work and IV fluids. Follow-up with your primary care physician in one to 2 days for reevaluation Prescriptions: Ondansetron Odt [Zofran Odt] 4 mg PO Q8HR PRN #10 tab PRN Reason: Nausea Referrals: None,Stated [Primary Care Provider] - 1-2 days
[2017-07-19] MEDS: ONDANSETRON ODT 4 MG TAB PO STA ×2 (15:50→15:54)
[2017-07-19 15:52] LABS: Appearance,Urine Clear (Clear); Bilirubin,Urine Negative (Negative); Blood,Urine Negative (Negative); Color,Urine Yellow; Glucose,Urine (UA) Negative (Negative); Ketones,Urine Negative (Negative); Leukocyte Esterase,Urine Negative (Negative); Nitrite,Urine Negative (Negative); Protein,Urine Negative (Negative); Specific Gravity,Urine 1.022 (1.001-1.035); Urobilinogen,Urine <2.0 mg/dL (<2.0)
[2017-07-19] MEDS ORDERED: ONDANSETRON ODT 4 MG TAB PO STA (15:52)
== END 2017-07-19 16:02 | disposition home or self-care (01) ==
LOC: EC 15:24
DX: R11.2 Nausea with vomiting, unspecified (principal); R10.9 Unspecified abdominal pain; R50.9 Fever, unspecified; R68.84 Jaw pain; Z79.3 Long term (current) use of hormonal contraceptives; Z91.030 Bee allergy status
CPT/HCPCS: 81003; 81025; 99284

== ENCOUNTER 2017-08-22 03:26 | Emergency (ER) | payer OTHER ==
[2017-08-22 03:35] VITALS: BP 120/59; PULSE 69; RESP 16; TEMP 98.6
[2017-08-22] MEDS ORDERED: diphenhydrAMINE 25 MG CAP PO STA (03:49)
--- NOTE | 2017-08-22 03:50 | ED ---
Skin/Abscess/FB HPI - General Chief complaint: Skin/Abscess/Foreign Body Stated complaint: rash Time Seen by Provider: 08/22/17 03:37 Source: patient Mode of arrival: ambulatory Limitations: no limitations - History of Present Illness Initial comments: 21-year-old female patient presents the emergency department today for evaluation of rash to the right forearm. Patient states it has been there for the last couple of days. States it is very itchy. States she has been scratching and now it is burning. Patient denies taking anything for her symptoms. Denies any exposure to any new substances including creams, lotions, soaps, clothing, fabric softeners, or perfumes. Patient denies rash over any other part of her body. Denies any throat swelling, lip swelling, or trouble breathing. Patient denies any recent fever, chills, chest pain, abdominal pain, nausea, vomiting, diarrhea, constipation, back pain, numbness, tingling, dizziness, weakness, hematuria, dysuria, urinary urgency, urinary frequency, headache, visual changes, or any other complaints. - Related Data Home Medications Medication Instructions Recorded Confirmed Norgestimate-Ethinyl Estradiol 1 tab PO DAILY 05/22/17 07/19/17 [Mononessa 28 Tablet] Sertraline [Zoloft] 100 mg PO DAILY 07/19/17 07/19/17 Previous Rx's Medication Instructions Recorded Ondansetron Odt [Zofran Odt] 4 mg PO Q8HR PRN #10 tab 07/19/17 Hydrocortisone Cream 1 applic TOPICAL TID PRN #15 gm 08/22/17 [Hydrocortisone 1% Cream] Allergies Allergy/AdvReac Type Severity Reaction Status Date / Time venom-honey bee Allergy Anaphylaxis Verified 07/19/17 15:53 [bee venom (honey bee)] Review of Systems ROS Statement: Those systems with pertinent positive or pertinent negative responses have been documented in the HPI. ROS Other: All systems not noted in ROS Statement are negative. Past Medical History Past Medical History: No Reported History Additional Past Medical History / Comment(s): low Fe, History of Any Multi-Drug Resistant Organisms: None Reported Past Surgical History: No Surgical Hx Reported Additional Past Surgical History / Comment(s): D&C at delivery Past Anesthesia/Blood Transfusion Reactions: No Reported Reaction Past Psychological History: ADD/ADHD, Anxiety, Bipolar, Depression Smoking Status: Never smoker Past Alcohol Use History: Occasional Past Drug Use History: None Reported - Past Family History Father History Unknown: Yes Family Medical History: No Reported History General Exam Limitations: no limitations General appearance: alert, in no apparent distress, other (This is a well- developed, well-nourished adult female patient in no acute distress. Vital signs upon presentation are temperature 98.6F, pulse 69, respirations 16, blood pressure 120/59, pulse ox 98% on room air.) Eye exam: Present: normal appearance, PERRL, EOMI. Absent: scleral icterus, conjunctival injection, periorbital swelling ENT exam: Present: normal exam, normal oropharynx, mucous membranes moist Respiratory exam: Present: normal lung sounds bilaterally. Absent: respiratory distress, wheezes, rales, rhonchi, stridor Cardiovascular Exam: Present: regular rate, normal rhythm, normal heart sounds. Absent: systolic murmur, diastolic murmur, rubs, gallop, clicks Extremities exam: Present: full ROM, normal capillary refill, other (Patient has erythematous raised rash to the volar aspect of the right forearm. There are scabbed lesions from patient scratching. There is minimal surrounding erythema. Lesions are nonvesicular, non-petechial. Does seem consistent with a contact dermatitis.). Absent: normal inspection, tenderness, pedal edema, joint swelling, calf tenderness Neurological exam: Present: alert, oriented X3, CN II-XII intact Psychiatric exam: Present: normal affect, normal mood Skin exam: Present: warm, dry, intact, normal color. Absent: rash Course Vital Signs 08/22/17 03:31 Temperature 98.6 F Pulse Rate 69 Respiratory 16 Rate Blood Pressure 120/59 O2 Sat by Pulse 98 Oximetry Medical Decision Making - Medical Decision Making 21-year-old female patient presented to the emergency department today for evaluation of rash to the right forearm. This does seem consistent with contact dermatitis. We'll give her a prescription for hydrocortisone cream, she is instructed to use his for only 3 days. She is instructed to take Benadryl for symptom relief. She is instructed to follow-up with her primary care physician for recheck in 1-2 days. She verbalizes understanding and agrees with this plan. Disposition Clinical Impression: Contact dermatitis Disposition: HOME SELF-CARE Condition: Good Instructions: Contact Dermatitis (ED) Additional Instructions: Take Benadryl as needed. Use hydrocortisone cream as directed. Return here immediately for any new, worsening, or concerning symptoms. Prescriptions: Hydrocortisone Cream [Hydrocortisone 1% Cream] 1 applic TOPICAL TID PRN #15 gm PRN Reason: Itching Is patient prescribed a controlled substance at d/c from ED?: No Referrals: None,Stated [Primary Care Provider] - 1-2 days Time of Disposition: 03:50
== END 2017-08-22 04:23 | disposition home or self-care (01) ==
LOC: EC 03:26
DX: L25.9 Unspecified contact dermatitis, unspecified cause (principal); F32.9 Major depressive disorder, single episode, unspecified; F41.9 Anxiety disorder, unspecified; Z91.030 Bee allergy status; Z79.3 Long term (current) use of hormonal contraceptives; Z79.899 Other long term (current) drug therapy
CPT/HCPCS: 99282

== ENCOUNTER 2017-11-20 14:04 | Emergency (ER) | payer OTHER ==
[2017-11-20 14:12] VITALS: BP 114/69; PULSE 64; RESP 18; TEMP 98.1
[2017-11-20] MEDS ORDERED: IBUPROFEN 600 MG TAB PO STA (14:26)
--- NOTE | 2017-11-20 14:44 | ED ---
Upper Extremity HPI - General Chief Complaint: Extremity Injury, Upper Stated Complaint: Bruise Time Seen by Provider: 11/20/17 14:12 Source: patient Mode of arrival: ambulatory Limitations: no limitations - History of Present Illness Initial Comments: This is a 22-year-old female no past medical history who presents today for chief complaint of right upper arm pain and bruising patient states that she gave plasma last Tuesday and felt as though that they had not crackly performed exchange. She noticed some swelling immediately after the plasma donation, however this went away within the hour. On Tuesday she noticed bruising and tenderness near the area of plasma donation, denies erythema or warmth, fever or chills. Patient presented after leaving work today, because she stated it hurt when she was lifting things at the area of the plasma donation site. Patient presents emergency department in stable condition afebrile. Patient denies any masses in the right upper extremity, loss of sensation numbness tingling or paresthesias of the right upper extremity, decreased range motion of the RUE, shortness of breath, chest pain, back pain, abdominal pain, nausea or vomiting, numbness or tingling, dysuria or hematuria, constipation or diarrhea, headaches or visual changes, or any other complaints. Pt has applied ice to the area for the past few days stating this has helped, but has not tried any oral over the counter pain medications. - Related Data Previous Rx's Medication Instructions Recorded Cephalexin [Keflex] 500 mg PO Q8HR 5 Days #15 cap 11/20/17 Ibuprofen [Motrin] 600 mg PO Q6HR PRN 5 Days #20 tab 11/20/17 Allergies Allergy/AdvReac Type Severity Reaction Status Date / Time venom-honey bee Allergy Anaphylaxis Verified 11/20/17 14:11 [bee venom (honey bee)] Review of Systems ROS Statement: Those systems with pertinent positive or pertinent negative responses have been documented in the HPI. ROS Other: All systems not noted in ROS Statement are negative. Constitutional: Denies: fever, chills, weakness Eyes: Denies: vision change ENT: Denies: hearing loss Respiratory: Denies: cough, dyspnea Cardiovascular: Denies: chest pain, dyspnea on exertion, orthopnea Endocrine: Denies: as per HPI, fatigue Gastrointestinal: Denies: abdominal pain, nausea, vomiting Genitourinary: Denies: urgency, dysuria Skin: Reports: as per HPI, rash Neurological: Denies: headache, weakness, numbness, paresthesias, abnormal gait Past Medical History Past Medical History: No Reported History Additional Past Medical History / Comment(s): low Fe, History of Any Multi-Drug Resistant Organisms: None Reported Past Surgical History: No Surgical Hx Reported Additional Past Surgical History / Comment(s): D&C at delivery Past Anesthesia/Blood Transfusion Reactions: No Reported Reaction Past Psychological History: ADD/ADHD, Anxiety, Bipolar, Depression Smoking Status: Never smoker Past Alcohol Use History: Occasional Past Drug Use History: None Reported - Past Family History Father History Unknown: Yes Family Medical History: No Reported History General Exam - General Exam Comments Initial Comments: General: The patient is awake and alert, in no distress, and does not appear acutely ill. Eye: Pupils are equal, round and reactive to light, extra-ocular movements are intact. No nystagmus. There is normal conjunctiva bilaterally. No signs of icterus. Ears, nose, mouth and throat: There are moist mucous membranes and no oral lesions. Neck: The neck is supple, there is no tenderness or JVD. Cardiovascular: There is a regular rate and rhythm. No murmur, rub or gallop is appreciated. Respiratory: Lungs are clear to auscultation, respirations are non-labored, breath sounds are equal. No wheezes, stridor, rales, or rhonchi. Musculoskeletal: Normal ROM of the upper extremities equally bilaterally, at the shoulder, elbow, wrist and hand joints bilaterally. Mild tenderness to active range of motion at the right elbow, at the area of ecchymosis. Strength 5/5 of the upper shoulder wheeze bilaterally. Sensation intact of the UE b/l. Radial and ulnar pulses equal bilaterally 2+. Capillary refill less than 2 seconds. Neurological: A&O x 3. CN II-XII intact, There are no obvious motor or sensory deficits. Coordination appears grossly intact. Speech is normal. Skin: Skin is warm and dry and no rashes or lesions are noted. There is a circular area of ecchymosis approximately located on the right upper extremity to the antecubital fossa. There is no surrounding masses, erythema, swelling or warmth. Patient admits to pain to palpation over the area of ecchymosis. Psychiatric: Cooperative, appropriate mood & affect, normal judgment. Limitations: no limitations Course Vital Signs 11/20/17 14:08 Temperature 98.1 F Pulse Rate 64 Respiratory 18 Rate Blood Pressure 114/69 O2 Sat by Pulse 97 Oximetry Medical Decision Making - Medical Decision Making 22yo female with no PMH with right UE ecchymosis and tenderness s/p plasma donation. Afebrile, VS WNL. This appears to be a superficial thrombophlebitis given hx and physical exam examination findings. Case is discussed with at this time we feel pt does not require further imaging however if symptoms persister for >1week pt was told to return for further evaluation and treatment, Pt was discharged with RX for ibuprofen and told to apply warm compresses to the area with PCP in 2 days. Pt agreed with plan, requesting work note. Pt was discharged in stable condition. Disposition Clinical Impression: Superficial thrombophlebitis of right upper extremity Disposition: HOME SELF-CARE Instructions: Superficial Thrombophlebitis (ED) Additional Instructions: Please use medication as discussed. Please follow-up with family doctor in the next 2 days. Please return to emergency room if the symptoms increase or worsen or for any other concerns. Prescriptions: Cephalexin [Keflex] 500 mg PO Q8HR 5 Days #15 cap Ibuprofen [Motrin] 600 mg PO Q6HR PRN 5 Days #20 tab PRN Reason: Pain Is patient prescribed a controlled substance at d/c from ED?: No Referrals: None,Stated [Primary Care Provider] - 1-2 days Time of Disposition: 14:44
== END 2017-11-20 14:53 | disposition home or self-care (01) ==
LOC: EC 14:04
DX: I80.01 Phlebitis and thrombophlebitis of superficial vessels of right lower extremity (principal); Z91.030 Bee allergy status
CPT/HCPCS: 99283

== ENCOUNTER 2017-11-22 12:42 | Emergency (ER) | payer OTHER ==
[2017-11-22 12:48] VITALS: BP 109/66; PULSE 72; RESP 18; TEMP 98.3
--- NOTE | 2017-11-22 13:23 | ED ---
General Adult HPI - General Chief complaint: Recheck/Abnormal Lab/Rx Stated complaint: rt arm pain Time Seen by Provider: 11/22/17 12:45 Source: patient, RN notes reviewed Mode of arrival: ambulatory Limitations: no limitations - History of Present Illness Initial comments: This is a 22-year-old female presents emergency Department for bruising of the right arm. Patient states she was here 2 days ago after she had given plasma and they diagnosed her with a bruise that point. Patient states the bruises not gone away so she decided come the emergency Department. There is no redness around the bruise she states is just getting darker. Patient denies any decreased range of motion however it does hurt to fully extend her arm she states. There is no redness or pain in the upper arm there is no swelling in the upper arm. - Related Data Previous Rx's Medication Instructions Recorded Cephalexin [Keflex] 500 mg PO Q8HR 5 Days #15 cap 11/20/17 Ibuprofen [Motrin] 600 mg PO Q6HR PRN 5 Days #20 tab 11/20/17 Allergies Allergy/AdvReac Type Severity Reaction Status Date / Time venom-honey bee Allergy Anaphylaxis Verified 11/22/17 13:01 [bee venom (honey bee)] Review of Systems ROS Statement: Those systems with pertinent positive or pertinent negative responses have been documented in the HPI. ROS Other: All systems not noted in ROS Statement are negative. Past Medical History Past Medical History: No Reported History Additional Past Medical History / Comment(s): low Fe, History of Any Multi-Drug Resistant Organisms: None Reported Past Surgical History: No Surgical Hx Reported Additional Past Surgical History / Comment(s): D&C at delivery Past Anesthesia/Blood Transfusion Reactions: No Reported Reaction Past Psychological History: ADD/ADHD, Anxiety, Bipolar, Depression Smoking Status: Never smoker Past Alcohol Use History: Occasional Past Drug Use History: None Reported - Past Family History Father History Unknown: Yes Family Medical History: No Reported History General Exam - General Exam Comments Initial Comments: GENERAL Patient is well-developed and well-nourished. Patient is in mild distress. EYES Patient's pupils are equal and round. Extraocular motion is intact SKIN Unremarkable NEURO The patient is alert and oriented 3 PYSCH Patient has normal interpersonal interactions. MUSCULOSKELETAL There is a bruise on the medial aspect of her distal arm. It measures about 3 cm in diameter. Patient has full range of motion about the elbow there is no proximal changes in the arm Limitations: no limitations Course Vital Signs 11/22/17 12:43 Temperature 98.3 F Pulse Rate 72 Respiratory 18 Rate Blood Pressure 109/66 O2 Sat by Pulse 98 Oximetry Disposition Clinical Impression: Contusion of arm Disposition: HOME SELF-CARE Instructions: Contusion in Adults (ED) Is patient prescribed a controlled substance at d/c from ED?: No Referrals: None,Stated [Primary Care Provider] - 1-2 days Time of Disposition: 13:22
== END 2017-11-22 13:44 | disposition home or self-care (01) ==
LOC: EC 12:42
DX: S40.021A Contusion of right upper arm, initial encounter (principal); Z91.030 Bee allergy status; X58.XXXA Exposure to other specified factors, initial encounter
CPT/HCPCS: 99283

== ENCOUNTER 2018-01-02 17:44 | Emergency (ER) | payer OTHER ==
[2018-01-02 18:10] VITALS: BP 113/71; PULSE 94; RESP 20; TEMP 98.7
--- NOTE | 2018-01-02 19:28 | ED ---
ENT HPI - General Source: patient, RN notes reviewed Mode of arrival: ambulatory Limitations: no limitations <Yadiel Nash - Last Filed: 01/02/18 19:26> <Vida Fuentes - Last Filed: 01/03/18 07:55> - General Chief complaint: ENT Stated complaint: Sore Throat, Sinus Issues, 8 wks preg Time Seen by Provider: 01/02/18 19:18 - History of Present Illness Initial comments: 22-year-old female presents emergency department for cold-like symptoms. Patient states that they started in the last 3 days. Patient states she has nasal congestion or sore throat, ear pressure and a cough in the morning. Patient denies any shortness breath or chest pain. Patient denies fever, chills , headache or dizziness. Patient states she has not taking anything over-the- counter to help her symptoms. Patient does admit that she is approximately 8 weeks with no comp locating factors or complaints of her . Patient denies any nausea vomiting diarrhea constipation. (Yadiel Nash) - Related Data Previous Rx's Medication Instructions Recorded Cephalexin [Keflex] 500 mg PO Q8HR 5 Days #15 cap 11/20/17 Ibuprofen [Motrin] 600 mg PO Q6HR PRN 5 Days #20 tab 11/20/17 Allergies Allergy/AdvReac Type Severity Reaction Status Date / Time venom-honey bee Allergy Anaphylaxis Verified 01/02/18 18:10 [bee venom (honey bee)] Review of Systems ROS Other: All systems not noted in ROS Statement are negative. <Yadiel Nash - Last Filed: 01/02/18 19:26> ROS Other: All systems not noted in ROS Statement are negative. <Vida Fuentes P - Last Filed: 01/03/18 07:55> ROS Statement: Those systems with pertinent positive or pertinent negative responses have been documented in the HPI. Past Medical History Past Medical History: No Reported History Additional Past Medical History / Comment(s): low Fe, History of Any Multi-Drug Resistant Organisms: None Reported Past Surgical History: No Surgical Hx Reported Additional Past Surgical History / Comment(s): D&C at delivery Past Anesthesia/Blood Transfusion Reactions: No Reported Reaction Past Psychological History: ADD/ADHD, Anxiety, Bipolar, Depression Smoking Status: Never smoker Past Alcohol Use History: Occasional Past Drug Use History: None Reported - Past Family History Father History Unknown: Yes Family Medical History: No Reported History <Yadiel Nash - Last Filed: 01/02/18 19:26> General Exam Limitations: no limitations General appearance: alert, in no apparent distress Head exam: Present: atraumatic, normocephalic, normal inspection Eye exam: Present: normal appearance, PERRL, EOMI. Absent: scleral icterus, conjunctival injection, periorbital swelling ENT exam: Present: mucous membranes moist, TM's normal bilaterally, normal external ear exam. Absent: normal oropharynx (Postnasal drainage) Neck exam: Present: normal inspection, full ROM. Absent: tenderness, meningismus, lymphadenopathy Respiratory exam: Present: normal lung sounds bilaterally. Absent: respiratory distress, wheezes, rales, rhonchi, stridor Cardiovascular Exam: Present: regular rate, normal rhythm, normal heart sounds. Absent: systolic murmur, diastolic murmur, rubs, gallop, clicks GI/Abdominal exam: Present: soft, normal bowel sounds. Absent: distended, tenderness, guarding, rebound, rigid Skin exam: Present: warm, dry, intact, normal color. Absent: rash <Yadiel Nash - Last Filed: 01/02/18 19:26> Vital Signs 01/02/18 18:08 Temperature 98.7 F Pulse Rate 94 Respiratory 20 Rate Blood Pressure 113/71 O2 Sat by Pulse 98 Oximetry Medical Decision Making <Yadiel Nash - Last Filed: 01/02/18 19:26> <Vida Fuentes - Last Filed: 01/03/18 07:55> - Medical Decision Making 22-year-old female presented for cold-like symptoms. Patient has a viral upper a infection. Patient has no signs of bacterial infection this time symptoms started last 48 hours. We did discuss conservative treatment and over-the- counter approved medications for . Patient will follow-up with PCP and return for any worsening symptoms. (Yadiel Nash) I was available for consultation in the emergency department. The history and physical exam were done by the Midlevel Provider. Medical decision making was done by the Midlevel Provider. The Midlevel Provider did not contact me for this patient's care. I was not directly involved in this patient's care. (Vida Fuentes) Disposition Is patient prescribed a controlled substance at d/c from ED?: No Time of Disposition: 19:28 <Yadiel Nash - Last Filed: 01/02/18 19:26> <Vida Fuentes - Last Filed: 01/03/18 07:55> Clinical Impression: Upper respiratory infection, viral Disposition: HOME SELF-CARE Condition: Stable Instructions: Upper Respiratory Infection (ED) Additional Instructions: Please return to the Emergency Department if symptoms worsen or any other concerns. Referrals: None,Stated [Primary Care Provider] - 1-2 days
== END 2018-01-02 19:38 | disposition home or self-care (01) ==
LOC: EC 17:44
DX: O99.511 Diseases of the respiratory system complicating pregnancy, first trimester (principal); J06.9 Acute upper respiratory infection, unspecified; Z3A.08 8 weeks gestation of pregnancy; Z91.030 Bee allergy status
CPT/HCPCS: 99282

== ENCOUNTER 2018-01-18 16:10 | Emergency (ER) | payer OTHER ==
[2018-01-18 16:41] VITALS: RESP 18
[2018-01-18 17:04] LABS: Basophils % (A) 0 %; Eosinophils # (A) 0.2 k/uL (0-0.7); Eosinophils % (A) 2 %; HCT 41.3 % (34.0-46.0); HGB 14.1 gm/dL (11.4-16.0); Lymphocytes # (A) 2.7 k/uL (1.0-4.8); Lymphocytes % (A) 26 %; MCH 29.6 pg (25.0-35.0); MCHC 34.1 g/dL (31.0-37.0); MCV 86.8 fL (80.0-100.0); Mean Platelet Volume 9.4; Monocytes # (A) 0.5 k/uL (0-1.0); Monocytes % (A) 5 %; Neutrophils # (A) 6.5 k/uL (1.3-7.7); Neutrophils % (A) 64 %; Platelet Count 192 k/uL (150-450); RBC 4.75 m/uL (3.80-5.40); RDW 13.5 % (11.5-15.5); WBC 10.1 k/uL (3.8-10.6)
[2018-01-18 17:06] LABS: Appearance,Urine Clear (Clear); Bilirubin,Urine Negative (Negative); Blood,Urine Negative (Negative); Color,Urine Yellow; Glucose,Urine (UA) Negative (Negative); Ketones,Urine 2+ (Negative); Leukocyte Esterase,Urine Trace (Negative); Mucus,Urine Rare /hpf; Nitrite,Urine Negative (Negative); Protein,Urine Negative (Negative); RBC,Urine 1 /hpf (0-5); Specific Gravity,Urine 1.017 (1.001-1.035); Squamous Epithelial Cell,Urine 4 /hpf (0-4); Urobilinogen,Urine <2.0 mg/dL (<2.0); WBC,Urine 1 /hpf (0-5)
[2018-01-18 17:16] LABS: ALT 22 U/L (9-52); AST 21 U/L (14-36); Albumin 3.9 g/dL (3.5-5.0); Alkaline Phosphatase 52 U/L (38-126); Amylase 42 U/L (30-110); Anion Gap 10 mmol/L; Blood Urea Nitrogen 12 mg/dL (7-17); Calcium 9.1 mg/dL (8.4-10.2); Carbon Dioxide 21 mmol/L (22-30); Chloride 108 mmol/L (98-107); Glucose 80 mg/dL (74-99); Lipase 102 U/L (23-300); Potassium 4.1 mmol/L (3.5-5.1); Sodium 139 mmol/L (137-145); Total Bilirubin 0.4 mg/dL (0.2-1.3); Total Protein 6.4 g/dL (6.3-8.2)
[2018-01-18] MEDS ORDERED: SODIUM CHLORIDE 0.9% 1,000 ML IV ONE (17:49)
[2018-01-18] MEDS ORDERED: PYRIDOXINE 100 MG/ML 1 ML VIAL IVP STA (17:49)
--- NOTE | 2018-01-18 18:02 | ED ---
Abdominal Pain HPI - General Chief Complaint: Abdominal Pain Stated Complaint: ABd Pain-10 wks preg Time Seen by Provider: 01/18/18 17:18 Source: patient Mode of arrival: ambulatory Limitations: no limitations - History of Present Illness Initial Comments: 22-year-old female patient presents to the emergency department today for evaluation of nausea and lightheadedness. Patient states that symptoms started this morning when she woke up. Patient states that she was able tolerate oral intake today without difficulty. States that she is approximately 10 weeks . She is A1. She states she is having some lower abdominal pressure but denies any cramping or sharp pain. She denies any abnormal vaginal bleeding or discharge. States that she had her first appointment with her METERMAN Dr. Howard yesterday. States her first ultrasound is on Tuesday. Patient denies any back pain, fever, chills, vomiting, constipation, or diarrhea. Patient denies any recent rash, shortness breath, chest pain, back pain, numbness, tingling, weakness, hematuria, dysuria, urinary urgency, urinary frequency, headache, visual changes, or any other complaints. - Related Data Home Medications Medication Instructions Recorded Confirmed Fluticasone Nasal [place] [Flonase 1 spray EA NOSTRIL DAILY PRN 01/18/18 01/18/18 Nasal [place]] Pnv,Calcium 72/Iron/Folic Acid 1 tab PO HS 01/18/18 01/18/18 [ Plus Tablet] Previous Rx's Medication Instructions Recorded Pyridoxine HCl (Vitamin B6) 100 mg PO HS #30 tablet 01/18/18 [Vitamin B-6] Allergies Allergy/AdvReac Type Severity Reaction Status Date / Time venom-honey bee Allergy Anaphylaxis Verified 01/18/18 17:31 [bee venom (honey bee)] Review of Systems ROS Statement: Those systems with pertinent positive or pertinent negative responses have been documented in the HPI. ROS Other: All systems not noted in ROS Statement are negative. Past Medical History Past Medical History: No Reported History Additional Past Medical History / Comment(s): low Fe, History of Any Multi-Drug Resistant Organisms: None Reported Past Surgical History: No Surgical Hx Reported Additional Past Surgical History / Comment(s): D&C at delivery Past Anesthesia/Blood Transfusion Reactions: No Reported Reaction Past Psychological History: ADD/ADHD, Anxiety, Bipolar, Depression Smoking Status: Never smoker Past Alcohol Use History: None Reported Past Drug Use History: None Reported - Past Family History Father History Unknown: Yes Family Medical History: No Reported History General Exam Limitations: no limitations General appearance: alert, in no apparent distress, other (This is a well- developed, well-nourished adult female patient in no acute distress. Vital signs upon presentation are temperature 98.5F, pulse 86, respirations 18, blood pressure 115/73, pulse ox 100% on room air.) Eye exam: Present: normal appearance, PERRL, EOMI. Absent: scleral icterus, conjunctival injection, periorbital swelling ENT exam: Present: normal exam, normal oropharynx, mucous membranes moist Respiratory exam: Present: normal lung sounds bilaterally. Absent: respiratory distress, wheezes, rales, rhonchi, stridor Cardiovascular Exam: Present: regular rate, normal rhythm, normal heart sounds. Absent: systolic murmur, diastolic murmur, rubs, gallop, clicks GI/Abdominal exam: Present: soft, normal bowel sounds. Absent: distended, tenderness, guarding, rebound, rigid Neurological exam: Present: alert, oriented X3, CN II-XII intact Psychiatric exam: Present: normal affect, normal mood Skin exam: Present: warm, dry, intact, normal color. Absent: rash Course Vital Signs 01/18/18 01/18/18 01/18/18 16:38 18:23 19:57 Temperature 98.5 F 98.1 F Pulse Rate 86 65 77 Respiratory 18 18 18 Rate Blood Pressure 115/73 124/62 120/64 O2 Sat by Pulse 100 100 100 Oximetry Medical Decision Making - Medical Decision Making 22-year-old female patient who is approximately 10 weeks presents to the emergency department today with chief complaint of nausea. Physical examination is unremarkable. There is no abdominal tenderness. Patient denied vaginal bleeding or discharge. Labs reviewed and are unremarkable. She was given 1 L of normal saline here in the emergency department. We did attempt vitamin B6 did not help. We gave her Reglan and Benadryl which did improve her symptoms. She was able tolerate crackers prior to discharge. She is instructed to increase fluids. She prescription for vitamin B6 to take at bedtime. She is instructed to follow-up with her [facility] for recheck in 1-2 days. Return parameters were discussed in detail. She verbalizes understanding and agrees with this plan. - Lab Data Result diagrams: 01/18/18 16:53 01/18/18 16:53 Lab Results 01/18/18 01/18/18 01/18/18 Range/Units 16:53 16:53 16:53 WBC 10.1 (3.8-10.6) k/uL RBC 4.75 (3.80-5.40) m/uL Hgb 14.1 (11.4-16.0) gm/dL Hct 41.3 (34.0-46.0) % MCV 86.8 (80.0-100.0) fL MCH 29.6 (25.0-35.0) pg MCHC 34.1 (31.0-37.0) g/dL RDW 13.5 (11.5-15.5) % Plt Count 192 (150-450) k/uL Neutrophils % 64 % Lymphocytes % 26 % Monocytes % 5 % Eosinophils % 2 % Basophils % 0 % Neutrophils # 6.5 (1.3-7.7) k/uL Lymphocytes # 2.7 (1.0-4.8) k/uL Monocytes # 0.5 (0-1.0) k/uL Eosinophils # 0.2 (0-0.7) k/uL Basophils # 0.0 (0-0.2) k/uL Sodium 139 (137-145) mmol/L Potassium 4.1 (3.5-5.1) mmol/L Chloride 108 H (98-107) mmol/L Carbon Dioxide 21 L (22-30) mmol/L Anion Gap 10 mmol/L BUN 12 (7-17) mg/dL Creatinine 0.63 (0.52-1.04) mg/dL Est GFR (CKD-EPI)AfAm >90 (>60 ml/min/1.73 sqM) Est GFR (CKD-EPI)NonAf >90 (>60 ml/min/1.73 sqM) Glucose 80 (74-99) mg/dL Calcium 9.1 (8.4-10.2) mg/dL Total Bilirubin 0.4 (0.2-1.3) mg/dL AST 21 (14-36) U/L ALT 22 (9-52) U/L Alkaline Phosphatase 52 (38-126) U/L Total Protein 6.4 (6.3-8.2) g/dL Albumin 3.9 (3.5-5.0) g/dL Amylase 42 (30-110) U/L Lipase 102 (23-300) U/L Urine Color Yellow Urine Appearance Clear (Clear) Urine pH 6.0 (5.0-8.0) Ur Specific [place] 1.017 (1.001-1.035) Urine Protein Negative (Negative) Urine Glucose (UA) Negative (Negative) Urine Ketones 2+ H (Negative) Urine Blood Negative (Negative) Urine Nitrite Negative (Negative) Urine Bilirubin Negative (Negative) Urine Urobilinogen <2.0 (<2.0) mg/dL Ur Leukocyte Esterase Trace H (Negative) Urine RBC 1 (0-5) /hpf Urine WBC 1 (0-5) /hpf Ur Squamous Epith Cells 4 (0-4) /hpf Urine Mucus Rare H (None) /hpf Disposition Clinical Impression: Nausea/vomiting in Disposition: HOME SELF-CARE Condition: Good Instructions: Nausea and Vomiting in (ED) Additional Instructions: Increase fluids. Take medications as directed. Try to keep crackers and kicked something on her stomach at all times to help with queasiness. Follow- up with your [facility] for recheck as soon as possible. Return here immediately for any new, worsening, or concerning symptoms. Prescriptions: Pyridoxine HCl (Vitamin B6) [Vitamin B-6] 100 mg PO HS #30 tablet Is patient prescribed a controlled substance at d/c from ED?: No Referrals: None,Stated [Primary Care Provider] - 1-2 days Time of Disposition: 19:47
[2018-01-18] MEDS ORDERED: diphenhydrAMINE 50 MG/ML 1 ML VIAL IVP STA (19:09)
[2018-01-18] MEDS ORDERED: METOCLOPRAMIDE 5 MG/ML 2 ML VIAL IVP STA (19:09)
[2018-01-18 19:58] VITALS: BP 120/64; PULSE 77; TEMP 98.1
== END 2018-01-18 19:57 | disposition home or self-care (01) ==
LOC: EC 16:10
DX: O21.9 Vomiting of pregnancy, unspecified (principal); O99.89 Other specified diseases and conditions complicating pregnancy, childbirth and the puerperium; R42 Dizziness and giddiness; O99.281 Endocrine, nutritional and metabolic diseases complicating pregnancy, first trimester; E61.1 Iron deficiency; Z91.030 Bee allergy status; Z3A.10 10 weeks gestation of pregnancy
CPT/HCPCS: 36415; 80053; 82150; 83690; 85025; 81001; 99284; 96374; 96375 ×2; 96361; J1200; J3415; J2765

== ENCOUNTER → 2018-01-20 | Outpatient (CLI) | payer OTHER ==
--- NOTE | 2018-01-20 15:45 | US ---
EXAMINATION TYPE: Transabdominal DATE OF EXAM: 07/19/17 COMPARISON: NONE CLINICAL HISTORY: Z36 CONFIRM DATES. EXAM PERFORMED: Transvaginal (TV) and Transabdominal (TA) EXAM MEASUREMENTS: GESTATIONAL AGE / DATING Physician Established: Not established EDC: Undetermined Dates by LMP: (10 weeks/ 4 days) EDC: 08/14/18 Dates by First Scan: No previous EDCNo previous Dates by Current Scan for: (6 weeks/0 days) EDC: 09/13/2018 MATERNAL ANATOMY Uterus: 12.1 x 6.2 x 5.6 cm Right Ovary: 4.3 x 2.1 x 2.2 cm Left Ovary: 3.3 x 2.3 x 1.8 cm Post CDS / Adnexa: wnl Presence of free fluid: no Presence of corpus luteal cyst: no Presence of subchorionic bleed: no GESTATION / SURVEY CRL: 0.3 (6 weeks/0 days) Yolk Sac (normal less than 6mm): 0.2 cm Heart Fptw856 bpm, Very tiny..Seen better than recorded Rhythm: Normal IUP: Viable IUP Nuchal Translucency 10-14wks (normal less than 3mm): Date of LMP: 11/07/17 IMPRESSION: 1. Viable of 6 weeks 0 days with a heart rate of 114 bpm.
[2018-01-20 16:01] LABS: HCT 41.5 % (34.0-46.0); HGB 13.9 gm/dL (11.4-16.0); MCH 29.4 pg (25.0-35.0); MCHC 33.4 g/dL (31.0-37.0); MCV 88.2 fL (80.0-100.0); Mean Platelet Volume 9.8; Platelet Count 205 k/uL (150-450); RBC 4.71 m/uL (3.80-5.40); RDW 13.6 % (11.5-15.5); WBC 14.5 k/uL (3.8-10.6)
[2018-01-20 16:19] LABS: Glucose 73 mg/dL (74-99)
[2018-01-21 04:06] LABS: HIV 1 AB Non-Reactive (Non-Reactive); HIV AB P24 Non-Reactive (Non-Reactive); HIV P24 AG Non-Reactive (Non-Reactive)
[2018-01-21 06:04] LABS: Toxoplasma Antibody (IgG) <3.0 IU/mL (<7.2); Toxoplasma Antibody (IgM) 3.5 AU/mL (<8.0)
== END | disposition home or self-care (01) ==
LOC: RADUSWWP 14:31
PROVIDERS: ATTEND Obstetrics & Gynecology
DX: Z34.81 Encounter for supervision of other normal pregnancy, first trimester (principal); Z3A.01 Less than 8 weeks gestation of pregnancy
CPT/HCPCS: 76801; 76817; 82565; 82947; 85027; 86762; 86777; 86778; 86780; 86850; 86900; 86901; 87340; 87390

== ENCOUNTER 2018-02-18 13:08 | Emergency (ER) | payer OTHER ==
[2018-02-18 13:29] VITALS: RESP 18
[2018-02-18] MEDS ORDERED: SODIUM CHLORIDE 0.9% 1,000 ML IV ONE (15:11)
--- NOTE | 2018-02-18 15:11 | ED ---
Nausea/Vomiting/Diarrhea HPI - General Chief complaint: Nausea/Vomiting/Diarrhea Stated complaint: 10 wks preg/abdominal pain Time Seen by Provider: 02/18/18 14:10 Source: patient, RN notes reviewed, old records reviewed Mode of arrival: ambulatory Limitations: no limitations - History of Present Illness Initial comments: Patient is a 22-year-old female, , approximately 10 weeks . Patient states that she's been having episodes of nausea and occasional abdominal pain in the epigastric region. Pain is worse when she is certain foods. Patient reports she is feeling slightly dizzy. She denies any other complaints. - Related Data Home Medications Medication Instructions Recorded Confirmed Fluticasone Nasal [place] [Flonase 1 spray EA NOSTRIL DAILY PRN 01/18/18 01/18/18 Nasal [place]] Pnv,Calcium 72/Iron/Folic Acid 1 tab PO HS 01/18/18 01/18/18 [ Plus Tablet] Previous Rx's Medication Instructions Recorded Pyridoxine HCl (Vitamin B6) 100 mg PO HS #30 tablet 01/18/18 [Vitamin B-6] Amoxicillin 500 mg PO Q8H #21 capsule 02/18/18 Allergies Allergy/AdvReac Type Severity Reaction Status Date / Time venom-honey bee Allergy Anaphylaxis Verified 02/18/18 13:27 [bee venom (honey bee)] Review of Systems ROS Statement: Those systems with pertinent positive or pertinent negative responses have been documented in the HPI. ROS Other: All systems not noted in ROS Statement are negative. Past Medical History Past Medical History: No Reported History Additional Past Medical History / Comment(s): low Fe, History of Any Multi-Drug Resistant Organisms: None Reported Past Surgical History: No Surgical Hx Reported Additional Past Surgical History / Comment(s): D&C at delivery Past Anesthesia/Blood Transfusion Reactions: No Reported Reaction Past Psychological History: ADD/ADHD, Anxiety, Bipolar, Depression Smoking Status: Never smoker Past Alcohol Use History: None Reported Past Drug Use History: None Reported - Past Family History Father History Unknown: Yes Family Medical History: No Reported History General Exam - General Exam Comments Initial Comments: well appearing 22 year old female, no distress. Limitations: no limitations General appearance: alert, in no apparent distress Head exam: Present: atraumatic, normocephalic, normal inspection Eye exam: Present: normal appearance, PERRL, EOMI. Absent: scleral icterus, conjunctival injection, periorbital swelling ENT exam: Present: normal exam, mucous membranes moist Neck exam: Present: normal inspection. Absent: tenderness, meningismus, lymphadenopathy Respiratory exam: Present: normal lung sounds bilaterally. Absent: respiratory distress, wheezes, rales, rhonchi, stridor Cardiovascular Exam: Present: regular rate, normal rhythm, normal heart sounds. Absent: systolic murmur, diastolic murmur, rubs, gallop, clicks Back exam: Present: normal inspection Neurological exam: Present: alert, oriented X3, CN II-XII intact Psychiatric exam: Present: normal affect, normal mood Skin exam: Present: warm, dry, intact, normal color. Absent: rash Course Vital Signs 02/18/18 02/18/18 02/18/18 13:25 15:28 16:00 Temperature 98.3 F Pulse Rate 70 64 Respiratory 18 18 Rate Blood Pressure 99/66 130/83 121/74 O2 Sat by Pulse 100 98 100 Oximetry 02/18/18 16:16 Temperature 97.1 F L Pulse Rate 81 Respiratory 18 Rate Blood Pressure 120/73 O2 Sat by Pulse 99 Oximetry Medical Decision Making - Medical Decision Making 22 year old female with nausea and multiple complains. 10 weeks confirmed with US. Given IV fluid sand labs obtained. lab work shows to be normal, patient has bacteria in urine. Will place on antibiotics. No vaginal bleeding or abdominal pain. - Lab Data Result diagrams: 02/18/18 14:50 02/18/18 14:50 Lab Results 02/18/18 02/18/18 02/18/18 Range/Units 14:49 14:50 14:50 WBC 10.1 (3.8-10.6) k/uL RBC 4.82 (3.80-5.40) m/uL Hgb 14.0 (11.4-16.0) gm/dL Hct 42.5 (34.0-46.0) % MCV 88.2 (80.0-100.0) fL MCH 28.9 (25.0-35.0) pg MCHC 32.8 (31.0-37.0) g/dL RDW 13.3 (11.5-15.5) % Plt Count 235 (150-450) k/uL Neutrophils % 70 % Lymphocytes % 22 % Monocytes % 4 % Eosinophils % 2 % Basophils % 0 % Neutrophils # 7.1 (1.3-7.7) k/uL Lymphocytes # 2.2 (1.0-4.8) k/uL Monocytes # 0.4 (0-1.0) k/uL Eosinophils # 0.2 (0-0.7) k/uL Basophils # 0.0 (0-0.2) k/uL Sodium (137-145) mmol/L Potassium (3.5-5.1) mmol/L Chloride (98-107) mmol/L Carbon Dioxide (22-30) mmol/L Anion Gap mmol/L BUN (7-17) mg/dL Creatinine (0.52-1.04) mg/dL Est GFR (CKD-EPI)AfAm (>60 ml/min/1.73 sqM) Est GFR (CKD-EPI)NonAf (>60 ml/min/1.73 sqM) Glucose (74-99) mg/dL Calcium (8.4-10.2) mg/dL Total Bilirubin (0.2-1.3) mg/dL AST (14-36) U/L ALT (9-52) U/L Alkaline Phosphatase (38-126) U/L Total Protein (6.3-8.2) g/dL Albumin (3.5-5.0) g/dL HCG, Quant mIU/mL Urine Color Yellow Urine Appearance Turbid H (Clear) Urine pH 7.5 (5.0-8.0) Ur Specific [place] 1.017 (1.001-1.035) Urine Protein Negative (Negative) Urine Glucose (UA) Negative (Negative) Urine Ketones Negative (Negative) Urine Blood Negative (Negative) Urine Nitrite Negative (Negative) Urine Bilirubin Negative (Negative) Urine Urobilinogen <2.0 (<2.0) mg/dL Ur Leukocyte Esterase Trace H (Negative) Urine WBC 13 H (0-5) /hpf Amorphous Sediment Moderate H (None) /hpf Blood Type O Positive Blood Type Recheck [facility] 02/18/18 Range/Units 14:50 WBC (3.8-10.6) k/uL RBC (3.80-5.40) m/uL Hgb (11.4-16.0) gm/dL Hct (34.0-46.0) % MCV (80.0-100.0) fL MCH (25.0-35.0) pg MCHC (31.0-37.0) g/dL RDW (11.5-15.5) % Plt Count (150-450) k/uL Neutrophils % % Lymphocytes % % Monocytes % % Eosinophils % % Basophils % % Neutrophils # (1.3-7.7) k/uL Lymphocytes # (1.0-4.8) k/uL Monocytes # (0-1.0) k/uL Eosinophils # (0-0.7) k/uL Basophils # (0-0.2) k/uL Sodium 138 (137-145) mmol/L Potassium 4.2 (3.5-5.1) mmol/L Chloride 106 (98-107) mmol/L Carbon Dioxide 22 (22-30) mmol/L Anion Gap 10 mmol/L BUN 10 (7-17) mg/dL Creatinine 0.47 L (0.52-1.04) mg/dL Est GFR (CKD-EPI)AfAm >90 (>60 ml/min/1.73 sqM) Est GFR (CKD-EPI)NonAf >90 (>60 ml/min/1.73 sqM) Glucose 77 (74-99) mg/dL Calcium 10.1 (8.4-10.2) mg/dL Total Bilirubin 0.4 (0.2-1.3) mg/dL AST 18 (14-36) U/L ALT 21 (9-52) U/L Alkaline Phosphatase 60 (38-126) U/L Total Protein 7.4 (6.3-8.2) g/dL Albumin 4.1 (3.5-5.0) g/dL HCG, Quant 708730.0 mIU/mL Urine Color Urine Appearance (Clear) Urine pH (5.0-8.0) Ur Specific [place] (1.001-1.035) Urine Protein (Negative) Urine Glucose (UA) (Negative) Urine Ketones (Negative) Urine Blood (Negative) Urine Nitrite (Negative) Urine Bilirubin (Negative) Urine Urobilinogen (<2.0) mg/dL Ur Leukocyte Esterase (Negative) Urine WBC (0-5) /hpf Amorphous Sediment (None) /hpf Blood Type Blood Type Recheck - Radiology Data Radiology results: report reviewed IUP of 10 weeks. Patient PRANAV 09/15/2018. Disposition Clinical Impression: Asymptomatic bacteriuria during , Nausea, 10 weeks gestation of Disposition: HOME SELF-CARE Condition: Good Instructions: Acute Nausea and Vomiting (ED) Additional Instructions: Advised to rest, increase fluid intake. Follow-up with primary care provider. Take the medication as prescribed. Prescriptions: Amoxicillin 500 mg PO Q8H #21 capsule Is patient prescribed a controlled substance at d/c from ED?: No Referrals: None,Stated [Primary Care Provider] - 1-2 days Africa Crump MD [STAFF PHYSICIAN] - 1-2 days Time of Disposition: 16:00
[2018-02-18 15:17] LABS: Basophils % (A) 0 %; Eosinophils # (A) 0.2 k/uL (0-0.7); Eosinophils % (A) 2 %; HCT 42.5 % (34.0-46.0); Lymphocytes # (A) 2.2 k/uL (1.0-4.8); Lymphocytes % (A) 22 %; MCH 28.9 pg (25.0-35.0); MCHC 32.8 g/dL (31.0-37.0); MCV 88.2 fL (80.0-100.0); Mean Platelet Volume 9.1; Monocytes # (A) 0.4 k/uL (0-1.0); Monocytes % (A) 4 %; Neutrophils # (A) 7.1 k/uL (1.3-7.7); Neutrophils % (A) 70 %; Platelet Count 235 k/uL (150-450); RBC 4.82 m/uL (3.80-5.40); RDW 13.3 % (11.5-15.5); WBC 10.1 k/uL (3.8-10.6)
[2018-02-18 15:24] LABS: ALT 21 U/L (9-52); AST 18 U/L (14-36); Albumin 4.1 g/dL (3.5-5.0); Alkaline Phosphatase 60 U/L (38-126); Anion Gap 10 mmol/L; Blood Urea Nitrogen 10 mg/dL (7-17); Calcium 10.1 mg/dL (8.4-10.2); Carbon Dioxide 22 mmol/L (22-30); Chloride 106 mmol/L (98-107); Glucose 77 mg/dL (74-99); Potassium 4.2 mmol/L (3.5-5.1); Sodium 138 mmol/L (137-145); Total Bilirubin 0.4 mg/dL (0.2-1.3); Total Protein 7.4 g/dL (6.3-8.2)
[2018-02-18 15:26] LABS: Amorphous Sediment,Urine Moderate /hpf; Appearance,Urine Turbid (Clear); Bilirubin,Urine Negative (Negative); Blood,Urine Negative (Negative); Color,Urine Yellow; Glucose,Urine (UA) Negative (Negative); Ketones,Urine Negative (Negative); Leukocyte Esterase,Urine Trace (Negative); Nitrite,Urine Negative (Negative); PH, Urine 7.5 (5.0-8.0); Protein,Urine Negative (Negative); Specific Gravity,Urine 1.017 (1.001-1.035); Urobilinogen,Urine <2.0 mg/dL (<2.0); WBC,Urine 13 /hpf (0-5)
--- NOTE | 2018-02-18 15:39 | US ---
EXAMINATION TYPE: Transabdominal DATE OF EXAM: 07/19/17 CLINICAL HISTORY: Pain. Patient states she feels queasy today. EXAM PERFORMED: Transabdominal (TA) EXAM MEASUREMENTS: GESTATIONAL AGE / DATING Physician Established: Not yet established Dates by LMP: does not correlate from prior US Dates by First Scan: (10 weeks/1 days) EDC: 09/15/2018 Dates by Current Scan for: (10 weeks/1 days) EDC: 09/15/2018 MATERNAL ANATOMY Uterus: 13.2 x 3.9 x 8.3 cm Right Ovary: 2.5 x 1.8 x 2.9 cm Left Ovary: 2.6 x 1.6 x 1.9 cm Post CDS / Adnexa: wnl Presence of free fluid: none GESTATION / SURVEY CRL: 3.3 cm (10 weeks/1 days) Yolk Sac (normal less than 6mm): 0.5 Heart Rate: 161 bpm Rhythm: Normal IUP: Viable IUP Date of LMP: does not correlate Beta HcG (if available): Not available at this time IMPRESSION: Single viable intrauterine corresponding to an ultrasound age of 10 weeks 1 day with estima gonzalez date of delivery 09/15/2018
[2018-02-18 16:18] VITALS: BP 120/73; PULSE 81; TEMP 97.1
== END 2018-02-18 16:16 | disposition home or self-care (01) ==
LOC: EC 13:08
DX: O23.41 Unspecified infection of urinary tract in pregnancy, first trimester (principal); O26.891 Other specified pregnancy related conditions, first trimester; Z3A.10 10 weeks gestation of pregnancy; Z91.030 Bee allergy status
CPT/HCPCS: 36415; 76801; 80053; 81001; 84702; 85025; 86900; 86901; 96360; 99284

== ENCOUNTER 2018-02-25 13:55 | Emergency (ER) | payer OTHER ==
[2018-02-25 14:07] VITALS: TEMP 97.6
[2018-02-25] MEDS ORDERED: SODIUM CHLORIDE 0.9% 1,000 ML IV ONE (15:12)
[2018-02-25] MEDS ORDERED: SODIUM CHLORIDE 0.9% 1,000 ML IV SCH (15:15)
[2018-02-25] MEDS ORDERED: METOCLOPRAMIDE 5 MG/ML 2 ML VIAL IVP STA (15:17)
--- NOTE | 2018-02-25 15:19 | ED ---
Abdominal Pain HPI - General Chief Complaint: Abdominal Pain Stated Complaint: Vomiting Time Seen by Provider: 02/25/18 13:57 Source: patient, RN notes reviewed, old records reviewed Mode of arrival: ambulatory Limitations: no limitations - History of Present Illness Initial Comments: Patient is a 22-year-old female, Patient. She is ports that she is 11 weeks . She presents emergency department today with nausea and vomiting. She was seen in the emergency department by myself with week ago for similar complaints. She has nausea and vomiting with certain foods. She denies any significant lower cramping abdominal pain or vaginal bleeding. Patient states that she's taking her amoxicillin as prescribed for back and a symptomatic bacteriuria last week. Patient states she did have an episode of vomiting today and she noticed some bright red blood within the vomit. Patient states she's had no other complaints. She did follow-up with Dr. Howard this week. - Related Data Home Medications Medication Instructions Recorded Confirmed Fluticasone Nasal [place] [Flonase 1 spray EA NOSTRIL DAILY PRN 01/18/18 01/18/18 Nasal [place]] Pnv,Calcium 72/Iron/Folic Acid 1 tab PO HS 01/18/18 01/18/18 [ Plus Tablet] Previous Rx's Medication Instructions Recorded Pyridoxine HCl (Vitamin B6) 100 mg PO HS #30 tablet 01/18/18 [Vitamin B-6] Amoxicillin 500 mg PO Q8H #21 capsule 02/18/18 Cephalexin [Keflex] 500 mg PO Q6HR 3 Days #12 cap 02/25/18 Metoclopramide HCl [Reglan] 10 mg PO TID #10 tablet 02/25/18 Allergies Allergy/AdvReac Type Severity Reaction Status Date / Time venom-honey bee Allergy Anaphylaxis Verified 02/25/18 14:07 [bee venom (honey bee)] Review of Systems ROS Statement: Those systems with pertinent positive or pertinent negative responses have been documented in the HPI. ROS Other: All systems not noted in ROS Statement are negative. Past Medical History Past Medical History: No Reported History Additional Past Medical History / Comment(s): low Fe, History of Any Multi-Drug Resistant Organisms: None Reported Past Surgical History: No Surgical Hx Reported Additional Past Surgical History / Comment(s): D&C at delivery Past Anesthesia/Blood Transfusion Reactions: No Reported Reaction Past Psychological History: ADD/ADHD, Anxiety, Bipolar, Depression Smoking Status: Never smoker Past Alcohol Use History: None Reported Past Drug Use History: None Reported - Past Family History Father History Unknown: Yes Family Medical History: No Reported History General Exam - General Exam Comments Initial Comments: Patient is a well-appearing 22-year-old female. Alert and oriented. No acute distress. General: Well appearing, well nourished, in no distress. Oriented x 3, normal mood and affect . Ambulating without difficulty. Skin: Good turgor, no rash, unusual bruising or prominent lesions Hair: Normal texture and distribution. HEENT: Head: Normocephalic, atraumatic, no visible or palpable masses, depressions, or scaring. Eyes: Visual acuity intact, conjunctiva clear, sclera non-icteric, EOM intact, PERRL. Ears: EACs clear, TMs translucent & cone of light visualized. hearing intact. Nose: No external lesions, mucosa non-inflamed, septum and turbinates normal Mouth: Mucous membranes moist, no mucosal lesions. Teeth/Gums: No obvious caries or periodontal disease. No gingival inflammation or significant resorption. Pharynx: Mucosa non-inflamed, no tonsillar hypertrophy or exudate Neck: Supple, without lesions, bruits, or adenopathy, thyroid non-enlarged and non-tender Heart: No cardiomegaly or thrills; regular rate and rhythm, no murmur or gallop Lungs: Clear to auscultation and percussion Abdomen: Bowel sounds normal, no tenderness, organomegaly, masses, or hernia Extremities: No amputations or deformities, cyanosis, edema or varicosities, peripheral pulses intact Musculoskeletal: Normal gait and station. No misalignment, asymmetry, crepitation, defects, tenderness, masses, effusions, decreased range of motion, instability, atrophy or abnormal strength or tone in the head, neck, spine, ribs , pelvis or extremities. Neurologic: CN 2-12 normal. Sensation to pain, touch, and proprioception normal. DTRs normal in upper and lower extremities. No pathologic reflexes. Psychiatric: Oriented X3, intact recent and remote memory, judgment and insight , normal mood and affect. Limitations: no limitations Course Vital Signs 02/25/18 02/25/18 14:05 17:03 Temperature 97.6 F 97.6 F Pulse Rate 94 92 Respiratory 20 18 Rate Blood Pressure 106/77 105/74 O2 Sat by Pulse 99 100 Oximetry Medical Decision Making - Medical Decision Making 22-year-old female presents emergency department today with chief complaint of nausea and vomiting. She's been taking maximum for symptomatic bacteria the past week. Patient reports her nausea vomiting source certain foods. Discussed that she needs to monitor and avoid those foods. She is abdominal tenderness. Patient's labwork was reviewed and unremarkable. Patient 's urinalysis does appear to be somewhat worse than the last one. heart tones were obtained and were 1 50 bpm. Urine culture was not obtained on her initial UA. We will complete a urine culture today. Social Patient Keflex. Discussed close follow-up with primary care provider. Return parameters were discussed. - Lab Data Result diagrams: 02/25/18 14:52 02/25/18 14:52 Lab Results 02/25/18 02/25/18 02/25/18 Range/Units 14:52 14:52 14:52 WBC 8.5 (3.8-10.6) k/uL RBC 4.72 (3.80-5.40) m/uL Hgb 13.5 (11.4-16.0) gm/dL Hct 41.0 (34.0-46.0) % MCV 86.8 (80.0-100.0) fL MCH 28.5 (25.0-35.0) pg MCHC 32.8 (31.0-37.0) g/dL RDW 13.4 (11.5-15.5) % Plt Count 196 (150-450) k/uL Neutrophils % 67 % Lymphocytes % 23 % Monocytes % 5 % Eosinophils % 2 % Basophils % 1 % Neutrophils # 5.7 (1.3-7.7) k/uL Lymphocytes # 2.0 (1.0-4.8) k/uL Monocytes # 0.4 (0-1.0) k/uL Eosinophils # 0.2 (0-0.7) k/uL Basophils # 0.0 (0-0.2) k/uL Sodium 139 (137-145) mmol/L Potassium 4.1 (3.5-5.1) mmol/L Chloride 108 H (98-107) mmol/L Carbon Dioxide 22 (22-30) mmol/L Anion Gap 9 mmol/L BUN 7 (7-17) mg/dL Creatinine 0.50 L (0.52-1.04) mg/dL Est GFR (CKD-EPI)AfAm >90 (>60 ml/min/1.73 sqM) Est GFR (CKD-EPI)NonAf >90 (>60 ml/min/1.73 sqM) Glucose 72 L (74-99) mg/dL Calcium 10.0 (8.4-10.2) mg/dL Total Bilirubin 0.4 (0.2-1.3) mg/dL AST 18 (14-36) U/L ALT 21 (9-52) U/L Alkaline Phosphatase 53 (38-126) U/L Total Protein 7.5 (6.3-8.2) g/dL Albumin 4.1 (3.5-5.0) g/dL Amylase 50 (30-110) U/L Lipase 96 (23-300) U/L Urine Color Yellow Urine Appearance Turbid H (Clear) Urine pH 7.5 (5.0-8.0) Ur Specific [place] 1.020 (1.001-1.035) Urine Protein 1+ H (Negative) Urine Glucose (UA) Negative (Negative) Urine Ketones Negative (Negative) Urine Blood Negative (Negative) Urine Nitrite Negative (Negative) Urine Bilirubin Negative (Negative) Urine Urobilinogen <2.0 (<2.0) mg/dL Ur Leukocyte Esterase Large H (Negative) Urine RBC 16 H (0-5) /hpf Urine WBC 19 H (0-5) /hpf Ur Squamous Epith Cells 29 H (0-4) /hpf Amorphous Sediment Occasional H (None) /hpf Urine Mucus Moderate H (None) /hpf Disposition Clinical Impression: Nausea/vomiting in , Asymptomatic bacteriuria during Disposition: HOME SELF-CARE Condition: Good Instructions: Nausea and Vomiting in (ED) Additional Instructions: Patient has a follow-up with primary care physician. Return to emergency department if any alarming signs or symptoms occur. Switch the antibiotic from amoxicillin to Keflex. Prescriptions: Cephalexin [Keflex] 500 mg PO Q6HR 3 Days #12 cap Metoclopramide HCl [Reglan] 10 mg PO TID #10 tablet Is patient prescribed a controlled substance at d/c from ED?: No Referrals: [facility] [Primary Care Provider] - 1-2 days Time of Disposition: 16:50
[2018-02-25 15:21] LABS: Basophils % (A) 1 %; Eosinophils # (A) 0.2 k/uL (0-0.7); Eosinophils % (A) 2 %; HGB 13.5 gm/dL (11.4-16.0); Lymphocytes % (A) 23 %; MCH 28.5 pg (25.0-35.0); MCHC 32.8 g/dL (31.0-37.0); MCV 86.8 fL (80.0-100.0); Mean Platelet Volume 9.3; Monocytes # (A) 0.4 k/uL (0-1.0); Monocytes % (A) 5 %; Neutrophils # (A) 5.7 k/uL (1.3-7.7); Neutrophils % (A) 67 %; Platelet Count 196 k/uL (150-450); RBC 4.72 m/uL (3.80-5.40); RDW 13.4 % (11.5-15.5); WBC 8.5 k/uL (3.8-10.6)
[2018-02-25 15:25] LABS: Amorphous Sediment,Urine Occasional /hpf; Appearance,Urine Turbid (Clear); Bilirubin,Urine Negative (Negative); Blood,Urine Negative (Negative); Color,Urine Yellow; Glucose,Urine (UA) Negative (Negative); Ketones,Urine Negative (Negative); Leukocyte Esterase,Urine Large (Negative); Mucus,Urine Moderate /hpf; Nitrite,Urine Negative (Negative); PH, Urine 7.5 (5.0-8.0); Protein,Urine 1+ (Negative); RBC,Urine 16 /hpf (0-5); Squamous Epithelial Cell,Urine 29 /hpf (0-4); Urobilinogen,Urine <2.0 mg/dL (<2.0); WBC,Urine 19 /hpf (0-5)
[2018-02-25 15:38] LABS: ALT 21 U/L (9-52); AST 18 U/L (14-36); Albumin 4.1 g/dL (3.5-5.0); Alkaline Phosphatase 53 U/L (38-126); Amylase 50 U/L (30-110); Anion Gap 9 mmol/L; Blood Urea Nitrogen 7 mg/dL (7-17); Carbon Dioxide 22 mmol/L (22-30); Chloride 108 mmol/L (98-107); Glucose 72 mg/dL (74-99); Lipase 96 U/L (23-300); Potassium 4.1 mmol/L (3.5-5.1); Sodium 139 mmol/L (137-145); Total Bilirubin 0.4 mg/dL (0.2-1.3); Total Protein 7.5 g/dL (6.3-8.2)
[2018-02-25 17:05] VITALS: BP 105/74; PULSE 92; RESP 18
== END 2018-02-25 17:02 | disposition home or self-care (01) ==
LOC: EC 13:55
DX: O21.9 Vomiting of pregnancy, unspecified (principal); O98.811 Other maternal infectious and parasitic diseases complicating pregnancy, first trimester; R82.71 Bacteriuria; Z91.030 Bee allergy status; Z3A.11 11 weeks gestation of pregnancy
CPT/HCPCS: 36415; 80053; 82150; 83690; 85025; 81001; 87086; 99284; 96374; 96361 ×2; J2765

== ENCOUNTER 2018-03-06 15:35 | Emergency (ER) | payer OTHER ==
[2018-03-06 15:52] VITALS: TEMP 97.5
[2018-03-06 18:19] VITALS: BP 114/61; PULSE 72; RESP 16
--- NOTE | 2018-03-06 18:23 | ED ---
General Adult HPI - General Chief complaint: Nausea/Vomiting/Diarrhea Stated complaint: feels like foreign body in throat Time Seen by Provider: 03/06/18 16:43 Source: patient, RN notes reviewed Mode of arrival: ambulatory Limitations: no limitations - History of Present Illness Initial comments: 22-year-old female presents to the emergency department for a chief complaint of foreign body sensation in esophagus for 2 days. Patient states she swallowed a capsule of Keflex 2 days ago. She states she has had a foreign body sensation since that time. She states she has been able to swallow liquids and soft foods. Patient states she coughed up she again last night. She also states she is nauseous which has been consistent throughout her . She states she vomits about once per day. She has not had any increase vomiting recently. 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 Patient also complains of a mild headache. She states this was a gradual onset throughout this morning. She states is improving somewhat at this time. She states it is a 7 out of 10 and across her forehead. She states she has had headaches across her forehead before. Patient has no other complaints at this time including shortness of breath, chest pain, abdominal pain. - Related Data Home Medications Medication Instructions Recorded Confirmed Fluticasone Nasal [place] [Flonase 1 spray EA NOSTRIL DAILY PRN 01/18/18 01/18/18 Nasal [place]] Pnv,Calcium 72/Iron/Folic Acid 1 tab PO HS 01/18/18 01/18/18 [ Plus Tablet] Previous Rx's Medication Instructions Recorded Pyridoxine HCl (Vitamin B6) 100 mg PO HS #30 tablet 01/18/18 [Vitamin B-6] Amoxicillin 500 mg PO Q8H #21 capsule 02/18/18 Cephalexin [Keflex] 500 mg PO Q6HR 3 Days #12 cap 02/25/18 Metoclopramide HCl [Reglan] 10 mg PO TID #10 tablet 02/25/18 Azithromycin [Zithromax Z-pack] 0 mg PO DIRECTED #6 tab 03/01/18 Allergies Allergy/AdvReac Type Severity Reaction Status Date / Time venom-honey bee Allergy Anaphylaxis Verified 03/06/18 15:51 [bee venom (honey bee)] Review of Systems ROS Statement: Those systems with pertinent positive or pertinent negative responses have been documented in the HPI. ROS Other: All systems not noted in ROS Statement are negative. Past Medical History Past Medical History: No Reported History Additional Past Medical History / Comment(s): low Fe, History of Any Multi-Drug Resistant Organisms: None Reported Past Surgical History: No Surgical Hx Reported Additional Past Surgical History / Comment(s): D&C at delivery Past Anesthesia/Blood Transfusion Reactions: No Reported Reaction Past Psychological History: ADD/ADHD, Anxiety, Bipolar, Depression Smoking Status: Never smoker Past Alcohol Use History: None Reported Past Drug Use History: None Reported - Past Family History Father History Unknown: Yes Family Medical History: No Reported History General Exam Limitations: no limitations General appearance: alert, in no apparent distress Head exam: Present: atraumatic, normocephalic, normal inspection Eye exam: Present: normal appearance, PERRL, EOMI. Absent: scleral icterus, conjunctival injection, periorbital swelling ENT exam: Present: normal exam, normal oropharynx (Uvula midline, no tonsillar exudates noted bilaterally), mucous membranes moist, TM's normal bilaterally, normal external ear exam Neck exam: Present: normal inspection, full ROM. Absent: tenderness, meningismus, lymphadenopathy Respiratory exam: Present: normal lung sounds bilaterally. Absent: respiratory distress, wheezes, rales, rhonchi, stridor Cardiovascular Exam: Present: regular rate, normal rhythm, normal heart sounds. Absent: systolic murmur, diastolic murmur, rubs, gallop, clicks GI/Abdominal exam: Present: soft, normal bowel sounds. Absent: distended, tenderness, guarding, rebound, rigid Neurological exam: Present: alert, oriented X3, CN II-XII intact, normal gait. Absent: motor sensory deficit Expanded Patient oriented to: Present: person, place, time Speech: Present: fluid speech Cranial nerves: EOM's Intact: Normal, Gag Reflex: Normal, Nystagmus: Normal, Facial Sensation: Normal Cerebellar function: Finger to Nose: Normal, Heel to Castañeda: Normal, Romberg: Normal Upper motor neuron: Nazario Neglect: Normal, Pronator Drift: Normal Sensory exam: Upper Extremity Light Touch: Normal, Upper Extremity Pin Prick: Normal, Lower Extremity Light Touch: Normal, Lower Extremity Pin Prick: Normal Motor strength exam: RUE: 5 (no drift ), LUE: 5 (no drift), RLE: 5 (no drift), LLE: 5 (no drift) Eye Response: (4) open spontaneously Motor Response: (6) obeys commands Verbal Response: (5) oriented Bryan Total: 15 Psychiatric exam: Present: normal affect, normal mood Course Vital Signs 03/06/18 03/06/18 15:49 18:18 Temperature 97.5 F L Pulse Rate 84 72 Respiratory 18 16 Rate Blood Pressure 106/70 114/61 O2 Sat by Pulse 100 100 Oximetry Medical Decision Making - Medical Decision Making 22-year-old 12 weeks female presents for foreign body sensation in the esophagus. Patient states this occurred after she swallowed a capsule of Keflex 2 days ago. She states she is able to swallow liquids and soft solids such as mashed potatoes. She states she coughed on chicken yesterday. Patient is able to drink liquids here in the emergency department. She is also able to eat Jell-O without difficulty. She is able to eat crackers without any difficulty. I did observe all of this myself. At this time patient does not qualify for emergent endoscopy and will follow up with GI outpatient. However I did discuss the patient is to return if she has worsening symptoms. Patient also has a gradual onset headache of mild severity. 7 out of 10. She has had similar headaches before across her forehead. No focal neuro deficits. GCS 15. Patient is to take Tylenol for headaches, follow up wit primary care and return if she has any worsening symptoms Disposition Clinical Impression: Sensation of foreign body in esophagus Disposition: HOME SELF-CARE Condition: Good Instructions: Esophageal Foreign Body (ED) Additional Instructions: Take Tylenol for pain. Please follow up with GI in 1-2 days. Please return to the emergency department if you have any worsening symptoms. Is patient prescribed a controlled substance at d/c from ED?: No Referrals: [facility] [Primary Care Provider] - 1-2 days Ramon Phan MD [STAFF PHYSICIAN] - 1-2 days Time of Disposition: 18:20
== END 2018-03-06 18:33 | disposition home or self-care (01) ==
LOC: EC 15:35
DX: O99.89 Other specified diseases and conditions complicating pregnancy, childbirth and the puerperium (principal); R09.89 Other specified symptoms and signs involving the circulatory and respiratory systems; R51 Headache; Z3A.12 12 weeks gestation of pregnancy; Z91.030 Bee allergy status
CPT/HCPCS: 99283

== ENCOUNTER 2018-08-05 19:14 | Outpatient (CLI) | payer OTHER ==
[2018-08-05 20:00] LABS: Appearance,Urine Cloudy (Clear); Bacteria,Urine Occasional /hpf; Bilirubin,Urine Negative (Negative); Blood,Urine Negative (Negative); Color,Urine Light Yellow; Glucose,Urine (UA) Negative (Negative); Ketones,Urine Negative (Negative); Leukocyte Esterase,Urine Moderate (Negative); Mucus,Urine Rare /hpf; Nitrite,Urine Negative (Negative); Protein,Urine Negative (Negative); RBC,Urine 2 /hpf (0-5); Specific Gravity,Urine 1.006 (1.001-1.035); Squamous Epithelial Cell,Urine 12 /hpf (0-4); Urobilinogen,Urine <2.0 mg/dL (<2.0)
[2018-08-05 20:25] VITALS: BP 125/59; PULSE 88; RESP 16; TEMP 97.3
[2018-08-05 20:29] LABS: Basophils % (A) 0 %; Eosinophils # (A) 0.3 k/uL (0-0.7); Eosinophils % (A) 3 %; HCT 35.8 % (34.0-46.0); HGB 12.2 gm/dL (11.4-16.0); Lymphocytes # (A) 2.1 k/uL (1.0-4.8); Lymphocytes % (A) 26 %; MCH 30.3 pg (25.0-35.0); MCHC 34.1 g/dL (31.0-37.0); MCV 88.9 fL (80.0-100.0); Mean Platelet Volume 9.6; Monocytes # (A) 0.4 k/uL (0-1.0); Monocytes % (A) 5 %; Neutrophils % (A) 63 %; Platelet Count 183 k/uL (150-450); RBC 4.03 m/uL (3.80-5.40); RDW 14.3 % (11.5-15.5); WBC 7.9 k/uL (3.8-10.6)
--- NOTE | 2018-08-31 21:53 | P.MSEPDOC ---
Presenting Problems - Arrival Data Date of Arrival on Unit: 08/05/18 Time of Arrival on Unit: 19:14 Mode of Transport: Wheelchair - Complaint OB-Reason for Admission/Chief Complaint: Pain Comment: back pain, intermittent, 6/10 Medical History - Information : 3 Para: 1 Term: 1 : 0 Abortions: Spontaneous or Elective: 1 Number of Living Children: 1 - Gestational Age Gestational Age by PRANAV (wks/days): 34 Weeks and 1 Days Review of Systems - Review of Systems Constitutional: No problems Breast: No problems ENT: No problems Cardiovascular: No problems Respiratory: No problems Gastrointestinal: No problems Genitourinary: Dysuria, Urgency Musculoskeletal: No problems Neurological: No problems Skin: No problems Vital Signs - Temperature Temperature: 97.3 F Temperature Source: Temporal Artery Scan - Pulse Brachial Pulse Rate: 88 Pulse Assessment Method: Automatic Cuff - Respirations Respiratory Rate: 16 Oxygen Delivery Method: Room Air O2 Sat by Pulse Oximetry: 99 - Blood Pressure Right Arm Blood Pressure: 125/59 Blood Pressure Mean: 81 Blood Pressure Source: Automatic Cuff Medical Screen Scoring (Pre) - Cervical Exam Dilation: Exam Deferred Effacement: Exam Deferred Membranes: Intact - Uterine Contractions Frequency: N/A - Maternal Vital Signs Maternal Temperature: N/A Maternal Blood Pressure: N/A Signs of Preeclampsia: N/A - Pain Assessment Pain Location and Character: Back Pain Scale Used: Numeric (1 - 10) Pain Intensity: 6 Pain Description: *Acute, Aching Pain Frequency: Intermittent Pain Duration: 2 Pain Duration Units: Hours Pain Behavior: Facial Grimacing Pain Aggravating Factors: Activity Non-Pharmacological Interventions: Position/Reposition - Maternal Trauma Maternal Trauma: N/A - Assessment Baseline FHR: 125 Heart Rate - NICHD Category: Category I (Normal) = 0 NST: Reactive Position: N/A Station: N/A - Total Score Total Score (Pre): 0 - Level of Risk Level of Risk: Low (0-5) Physician Notification (Post) - Physician Notified Physician Notified Date: 08/05/18 Physician Notified Time: 20:40 Spoke With: Azalea New Order Received: Yes (cbc) - Notification Comment Comment: cbc wnl, calling abx script to [facility], follow up with own doc on Tuesday Disposition - Disposition OB Disposition: Discharge to home, Written follow up instructions reviewed Discharge Date: 08/05/18 Discharge Time: 20:45 I agree with the RN Medical Screening Exam: No Physician's MSE Comment: inadequate documentation Risk & Benefit of care provided described in d/c instruction: Yes Diagnosis: URINARY TRACT INFECTION, SITE NOT SPECIFIED
== END 2018-08-05 20:45 | disposition home or self-care (01) ==
LOC: FBPOP 19:14
PROVIDERS: ATTEND Obstetrics & Gynecology
DX: O99.89 Other specified diseases and conditions complicating pregnancy, childbirth and the puerperium (principal); Z3A.34 34 weeks gestation of pregnancy
CPT/HCPCS: 59025; 85025; 81001; 87086; G0463; 99213

== ENCOUNTER 2018-08-20 22:30 | Outpatient (CLI) | payer OTHER ==
[2018-08-21 00:12] VITALS: BP 126/63; PULSE 84; RESP 16; TEMP 98
--- NOTE | 2018-08-21 06:33 | P.MSEPDOC ---
Presenting Problems - Arrival Data Date of Arrival on Unit: 08/20/18 Time of Arrival on Unit: 22:30 Mode of Transport: EMS - Complaint OB-Reason for Admission/Chief Complaint: Observation/Evaluation Medical History - Information : 3 Para: 1 Term: 1 : 0 Abortions: Spontaneous or Elective: 1 Number of Living Children: 1 - Gestational Age Gestational Age by PRANAV (wks/days): 36 Weeks and 3 Days - History Comment: pt has hx of labor at 34/6 weeks. Review of Systems - Review of Systems Constitutional: No problems Breast: No problems ENT: No problems Cardiovascular: No problems Respiratory: No problems Gastrointestinal: No problems Genitourinary: No problems Musculoskeletal: No problems Neurological: No problems Skin: No problems Comment: pt has a spraind right ankle Vital Signs - Temperature Temperature: 98.0 F Temperature Source: Oral - Pulse Right Sitting Brachial Pulse Rate: 84 Pulse Assessment Method: Automatic Cuff - Respirations Respiratory Rate: 16 Oxygen Delivery Method: Room Air O2 Sat by Pulse Oximetry: 99 - Blood Pressure Right Arm Sitting Blood Pressure: 126/63 Blood Pressure Mean: 84 Blood Pressure Source: Automatic Cuff Medical Screen Scoring (Pre) - Cervical Exam Dilation: 1-3 cm = 1 Membranes: Intact - Uterine Contractions Frequency: > 5 minutes apart = 1 Duration: N/A Intensity: N/A - Maternal Vital Signs Maternal Temperature: N/A Maternal Blood Pressure: N/A Signs of Preeclampsia: N/A - Assessment Baseline FHR: 125 Heart Rate - NICHD Category: Category I (Normal) = 0 NST: Reactive - Total Score Total Score (Pre): 2 - Level of Risk Level of Risk: Low (0-5) Physician Notification (Pre) - Physician Notified Physician Notified Date: 08/20/18 Physician Notified Time: 22:56 Physician/Practitioner Notifed:: Yair Mackey Order Received: Yes Disposition - Disposition OB Disposition: Discharge to home, Written follow up instructions reviewed Discharge Date: 08/20/18 Discharge Time: 23:50 I agree with the RN Medical Screening Exam: Yes Risk & Benefit of care provided described in d/c instruction: Yes Diagnosis: ACUTE PAIN DUE TO TRAUMA (This patient apparently is 36 weeks and receiving care elsewhere. She presented this evening to [facility] after tripping over a sip a cup and injuring her foot. Patient fell on her but occiput but did not hit her abdomen is having no bleeding. Patient's heart tones are category 1 and she is not in labor. There is no evidence of maternal or compromise. Patient was instructed to take Tylenol as needed for discomfort follow-up with her city auditor today.)
== END 2018-08-20 23:50 | disposition home or self-care (01) ==
LOC: FBPOP 22:30
PROVIDERS: ATTEND Obstetrics & Gynecology
DX: O99.89 Other specified diseases and conditions complicating pregnancy, childbirth and the puerperium (principal); G89.11 Acute pain due to trauma; Z3A.36 36 weeks gestation of pregnancy
CPT/HCPCS: 59025; 84112; G0463; 99213